=== PATIENT | female | born 1940 | race Caucasian/White ===

== ENCOUNTER 2019-12-16 09:29 | Emergency (ER) | payer OTHER, SELFPAY ==
[2019-12-16 09:42] VITALS: BP 131/63; PULSE 60; RESP 20; TEMP 36.8; O2SAT 98
--- NOTE | 2019-12-16 11:19 | ED.URI ---
HPI - URI/Sore Throat General Chief Complaint: Upper Respiratory Infection Stated Complaint: SINUS CONGESTION/HEADACHE Source: patient and RN notes reviewed Mode of arrival: ambulatory History of Present Illness HPI Narrative: The patient, a non-smoker/nondrinker, presents with congestion. Patient states she has a history of sinusitis followed by ENT [Dr. Rebollar], confirmed by CT scan [2017], showing chronic maxillary sinusitis dz. She complains of 1 month history of facial/frontal headache, congestion,, and postnasal drip. Symptoms are mild, unrelieved with previous Flonase or Astelin. No fever, triggers [pets, smokers], sore throat, earache, calf pain/edema, wheeze Related Data Home Medications Medication Instructions Recorded Confirmed amlodipine 5 mg tablet 5 mg PO DAILY 10/03/19 12/16/19 azelastine-fluticasone 137 mcg-50 See Rx Instructions .ROUTE .COMPLEX 10/03/19 12/16/19 mcg/spray nasal spray cholecalciferol (vitamin D3) 50 2,000 unit PO DAILY 10/03/19 12/16/19 mcg (2,000 unit) tablet cholestyramine (with sugar) 4 gram See Rx Instructions .ROUTE .COMPLEX 10/03/19 12/16/19 oral powder cyanocobalamin (vitamin B-12) See Rx Instructions .ROUTE .COMPLEX 10/03/19 12/16/19 1,000 mcg/mL injection solution cyclobenzaprine 5 mg tablet 5 mg PO TID PRN 10/03/19 12/16/19 fluticasone propionate 50 See Rx Instructions .ROUTE .COMPLEX 10/03/19 12/16/19 mcg/actuation nasal spray,suspension oxybutynin chloride 10 mg 10 mg PO DAILY 10/03/19 12/16/19 tablet,extended release 24 hr potassium 99 mg tablet See Rx Instructions .ROUTE .COMPLEX 10/03/19 12/16/19 syringe (disposable) 1 mL #1,000 each 10/03/19 gabapentin 300 mg PO BID 12/16/19 12/16/19 tramadol 50 mg PO Q6H PRN 12/16/19 12/16/19 Allergies Allergy/AdvReac Type Severity Reaction Status Date / Time ofloxacin Allergy Severe HALLUCINATI Verified 12/16/19 09:51 ONS Quinolones Allergy Mild Gastrointestinal Verified 12/16/19 09:51 Upset clarithromycin Allergy Unknown Gastrointestinal Verified 12/16/19 09:51 Upset Sulfa (Sulfonamide Allergy Unknown Blister Verified 12/16/19 09:51 Antibiotics) Review of Systems Review of Systems: Narrative: General/Constitutional: No weight loss,fever Eyes: N0: Redness,discharge Ears/Nose/Throat: No: Epistaxis,ear discharge Respiratory: Denies: Hemoptysis Gastrointestinal: No Vomiting, Bleeding-rectal Skin: No Lumps, eruption Neurologic: No Focal Weakness,Sz Hematologic: Denies: Petechiae/Purpura Psychiatric: No: Suicida ideationl All Other Systems: Reviewed and Negative PMFSH Social History Social History Smoking status: Never smoker Alcohol intake: never Comments At time of signature, agree with nursing past medical, surgical, social and family history. There is no relevant family history pertinent to the presenting complaint Exam Narrative: Exam Narrative: General Appearance: Well appearing, Well nourished EYE: PERRLA, Conjunctiva clear Ears: Auditory canal normal, TM normal Nose: Rhinorrhea, Mucousal erythema Mouth/Throat: MM moist, Uvula midline, Pharyngeal erythema Neck: Supple, No adenopathy Respiratory: No respiratory distress, Breath sounds equal, CTA kyphotic Cardiovascular: RRR, No JVD Musculoskeletal: Non tender, Normal strength Skin: Warm, Dry Neurological: A&O x3, CN II-XII intact Psychiatric: Normal mood, Normal affect Course Course Emergency Course: General Appearance: Well appearing, Well nourished EYE: PERRLA, Conjunctiva clear Ears: Auditory canal normal, TM normal Nose: Rhinorrhea, Mucousal erythema Mouth/Throat: MM moist, Uvula midline, Pharyngeal erythema Neck: Supple, No adenopathy Respiratory: No respiratory distress, Breath sounds equal, Clear to auscultation Cardiovascular: RRR, No JVD Musculoskeletal: Non tender, Normal strength Skin: Warm, Dry Neurological: A&O x3, CN II-XI
== END 2019-12-16 10:18 | disposition home or self-care (01) ==
PROVIDERS: Emergency Provider Emergency Medicine; PCP Emergency Medicine
DX: J01.90 Acute sinusitis, unspecified (principal); I10 Essential (primary) hypertension; K21.9 Gastro-esophageal reflux disease without esophagitis; H26.9 Unspecified cataract; H40.9 Unspecified glaucoma
CPT/HCPCS: 99213; G0463

== ENCOUNTER 2020-04-25 08:26 | Outpatient (CLI) | payer OTHER, SELFPAY ==
--- NOTE | ~2020-04-25 | MM_ITS ---
EXAMINATION: MM screening josé miguel BI w lucie HISTORY: Screening mammogram TECHNIQUE: Craniocaudal and mediolateral oblique 3-D tomosynthesis images were obtained and synthetic 2-D images were generated. CAD analysis was submitted and interpreted. COMPARISON: 11/20/2018, 09/02/2017, 08/12/2016 bilateral digital screening mammogram examinations BREAST PARENCHYMAL COMPOSITION: There are scattered areas of fibroglandular density. FINDINGS: There is no evidence of suspicious mass, calcification, or architectural distortion to sugg est malignancy in either breast. There has been no suspicious interval change. IMPRESSION: 1. No mammographic evidence of malignancy. 2. Recommend routine screening mammography in one year. BI-RADS Category 1: Negative Reviewed, dictated and finalized at location A.
[2020-04-25 09:40] LABS: Alanine Aminotransferase 17 U/L (4-35); Albumin Level 4.4 g/dL (3.5-5.1); Alkaline Phosphatase 86 U/L (38-126); Aspartate Amino Transferase 18 U/L (14-36); Bilirubin,Total 0.4 mg/dL (0.2-1.3); Blood Urea Nitrogen 19 mg/dL (7-17); Calcium 9.2 mg/dL (8.4-10.2); Carbon Dioxide 29 mmol/L (22-30); Chloride 104 mmol/L (98-107); Estimated Glomerular Filt Rate > 60; Glucose 98 mg/dL (65-105); Potassium 4.2 mmol/L (3.4-5.0); Sodium 138 mmol/L (137-145)
== END 2020-04-25 08:27 | disposition home or self-care (01) ==
PROVIDERS: PCP Emergency Medicine; Visit Provider Emergency Medicine
DX: Z12.31 Encounter for screening mammogram for malignant neoplasm of breast (principal); E78.5 Hyperlipidemia, unspecified
CPT/HCPCS: 36415; 77063; 77067; 80053

== ENCOUNTER 2020-10-11 07:45 | Outpatient (CLI) | payer OTHER, SELFPAY ==
--- NOTE | ~2020-10-11 | DEXA_ITS ---
Bone Density Report Name: Carmella James Age: 80 Sex: Female Ethnicity: White Date of : 1940 Indication: osteopenia; parental hip fracture; height loss; prior fracture; hysterectomy; Referring Provider: ANTONIA RUSHING Study: Bone densitometry was performed. Exam Date: October 11, 2020 Accession number: [id number] Bone Density: Region BMD T-score Z-score Classification AP Spine (L1-L4) 0.905 -1.3 1.3 Osteopenia Femoral Neck (Left) 0.721 -1.2 1.1 Osteopenia Total Hip (Left) 0.790 -1.2 0.8 Osteopenia Total Hip Bilateral Avg 0.788 -1.3 0.8 Osteopenia Femoral Neck (Right) 0.602 -2.2 0.0 Osteopenia Total Hip (Right) 0.785 -1.3 0.7 Osteopenia World Health Organization criteria for BMD impression classify patients as: Normal (T-score at or above -1.0), Osteopenia (T-score between -1.0 and -2.5), or Osteoporosis (T-score at or below -2.5). 10-year Fracture Risk(1): Major Osteoporotic Fracture 38% Hip Fracture 24% Reported Risk Factors: [place] (), Neck BMD=0.602, BMI=30.3, previous fracture, parental fracture (1) FRAX(R) Version 3.08. Fracture probability calculated for an untreated patient. Fracture probability may be lower if the patient has received treatment. Previous Exams: Region Exam Age BMD T-score BMD Change BMD Change Date g/cm2 vs Baseline vs Previous AP Spine(L1-L4) 10/11/2020 80 0.905 -1.3 0.001(0.1%) -0.006(-0.7%) 09/02/2017 76 0.912 -1.2 0.007(0.8%) 0.007(0.8%) 06/11/2015 74 0.904 -1.3 Total Hip(Left) 10/11/2020 80 0.790 -1.2 -0.016(-1.9%) -0.058(-6.8%)* 09/02/2017 76 0.848 -0.8 0.042(5.2%)* 0.042(5.2%)* 06/11/2015 74 0.805 -1.1 Total Hip(Right) 10/11/2020 80 0.785 -1.3 -0.008(-1.0%) -0.039(-4.8%)* 09/02/2017 76 0.825 -1.0 0.031(4.0%)* 0.031(4.0%)* 06/11/2015 74 0.793 -1.2 *Denotes significance at 95% confidence level, LSC for AP Spine = 0.022 g/cm2, LSC for Total Hip = 0.027 g/cm2 Clinical Information Provided by Patient: Has had a low trauma fracture Parent has had a hip fracture Has used the following medications: Vitamin D, Calcium Has the following medical conditions: Hysterectomy Patient maximum height was 62 Menopause Age: 51 No regular weight bearing exercise Does not regularly consume dairy products Onset of menses at age 13 Number of children 4 Impression: The patient has low bone mass, based on the Right Femoral Neck T-score
== END 2020-10-11 07:46 | disposition home or self-care (01) ==
PROVIDERS: PCP Emergency Medicine; Visit Provider Emergency Medicine
DX: Z78.0 Asymptomatic menopausal state (principal); M85.88 Other specified disorders of bone density and structure, other site; M85.852 Other specified disorders of bone density and structure, left thigh; M85.851 Other specified disorders of bone density and structure, right thigh
CPT/HCPCS: 77080

== ENCOUNTER 2020-12-13 12:33 | Outpatient (CLI) | payer OTHER, SELFPAY ==
[2020-12-13 13:19] LABS: Alanine Aminotransferase 12 U/L (4-35); Albumin Level 4.3 g/dL (3.5-5.1); Alkaline Phosphatase 79 U/L (38-126); Anion Gap 8 mmol/L (8-16); Aspartate Amino Transferase 19 U/L (14-36); Bilirubin,Total 0.6 mg/dL (0.2-1.3); Blood Urea Nitrogen 12 mg/dL (7-17); Calcium 9.1 mg/dL (8.4-10.2); Carbon Dioxide 28 mmol/L (22-30); Chloride 104 mmol/L (98-107); Estimated Glomerular Filt Rate > 60; Glucose 99 mg/dL (65-105); Potassium 4.3 mmol/L (3.4-5.0); Sodium 140 mmol/L (137-145)
[2020-12-17 05:44] LABS: Vitamin D 1,25 (OH)2 Total 45 pg/mL (18-72); Vitamin D2 1,25 (OH)2 <8 pg/mL; Vitamin D3 1,25 (OH)2 45 pg/mL
== END 2020-12-13 12:34 | disposition home or self-care (01) ==
LOC: ANHLAB 12:34
PROVIDERS: PCP Emergency Medicine; Visit Provider Emergency Medicine
DX: E55.9 Vitamin D deficiency, unspecified (principal); E78.5 Hyperlipidemia, unspecified
CPT/HCPCS: 36415; 80053; 82652

== ENCOUNTER 2021-03-26 15:52 | Outpatient (CLI) | payer OTHER, SELFPAY ==
--- NOTE | ~2021-03-26 | XR_ITS ---
EXAMINATION: XR knee RT 2V DATE: 03/26/2021 16:09 INDICATION: Medial right knee pain. TECHNIQUE: 2 views of right knee were obtained. COMPARISON: None. FINDINGS: Bone alignment is normal. No fracture. There is mild osteoarthritis of medial and patellofe moral compartments. No knee joint effusion. IMPRESSION: 1. Mild right knee osteoarthritis. Reviewed, dictated and finalized at location B.
== END 2021-03-26 15:53 | disposition home or self-care (01) ==
LOC: ANHIMG 15:54
PROVIDERS: PCP Emergency Medicine; Visit Provider Emergency Medicine
DX: M17.11 Unilateral primary osteoarthritis, right knee (principal)
CPT/HCPCS: 73560

== ENCOUNTER → 2021-05-31 06:42 | Outpatient (CLI) | payer OTHER, SELFPAY ==
[2021-05-31 18:26] LABS: SARS-CoV-2 RNA PCR Negative
== END ==
PROVIDERS: PCP Emergency Medicine; Visit Provider Emergency Medicine
DX: R05 Cough (principal); R50.9 Fever, unspecified; R68.89 Other general symptoms and signs; Z20.822 Contact with and (suspected) exposure to COVID-19
CPT/HCPCS: C9803; U0003; U0005

== ENCOUNTER 2021-07-25 10:59 | Outpatient (CLI) | payer OTHER, SELFPAY ==
[2021-07-25 11:44] LABS: Alanine Aminotransferase 16 U/L (4-35); Albumin Level 4.6 g/dL (3.5-5.1); Alkaline Phosphatase 66 U/L (38-126); Anion Gap 9 mmol/L (8-16); Aspartate Amino Transferase 22 U/L (14-36); Bilirubin,Total 0.5 mg/dL (0.2-1.3); Blood Urea Nitrogen 11 mg/dL (7-17); Calcium 9.1 mg/dL (8.4-10.2); Carbon Dioxide 26 mmol/L (22-30); Chloride 105 mmol/L (98-107); Estimated Glomerular Filt Rate > 60; Glucose 101 mg/dL (65-110); Potassium 4.2 mmol/L (3.4-5.0); Sodium 140 mmol/L (137-145)
[2021-07-29 12:19] LABS: Vitamin D 1,25 (OH)2 Total 64 pg/mL (18-72); Vitamin D2 1,25 (OH)2 <8 pg/mL; Vitamin D3 1,25 (OH)2 64 pg/mL
== END 2021-07-25 11:00 | disposition home or self-care (01) ==
PROVIDERS: PCP Emergency Medicine; Visit Provider Emergency Medicine
DX: E55.9 Vitamin D deficiency, unspecified (principal); M85.80 Other specified disorders of bone density and structure, unspecified site; Z13.6 Encounter for screening for cardiovascular disorders
CPT/HCPCS: 36415; 80053; 82652

== ENCOUNTER 2021-08-22 14:52 | Outpatient (CLI) | payer OTHER, SELFPAY ==
--- NOTE | ~2021-08-22 | MM_ITS ---
EXAMINATION: MM screening josé miguel BI w lucie HISTORY: Screening mammogram TECHNIQUE: Craniocaudal and mediolateral oblique 3-D tomosynthesis images were obtained and synthetic 2-D images were generated. CAD analysis was submitted and interpreted. COMPARISON: 04/25/2020, 11/03/2018, 09/02/2017 bilateral digital screening mammogram examinations BREAST PARENCHYMAL COMPOSITION: There are scattered areas of fibroglandular density. FINDINGS: There is no evidence of suspicious mass, calcification, or architectural distortion to sugg est malignancy in either breast. There has been no suspicious interval change. IMPRESSION: 1. No mammographic evidence of malignancy. 2. Recommend routine screening mammography in one year. BI-RADS Category 1: Negative Reviewed, dictated and finalized at location A.
== END 2021-08-22 14:53 | disposition home or self-care (01) ==
LOC: ANHIMG 14:53
PROVIDERS: PCP Emergency Medicine; Visit Provider Emergency Medicine
DX: Z12.31 Encounter for screening mammogram for malignant neoplasm of breast (principal)
CPT/HCPCS: 77063; 77067

== ENCOUNTER 2021-09-17 13:46 | Outpatient (CLI) | payer OTHER, SELFPAY ==
--- NOTE | ~2021-09-17 | XR_ITS ---
EXAMINATION: XR ribs RT 2V w CXR 2V DATE: 09/17/2021 14:14 INDICATION: Right-sided pleurodynia post fall one week prior TECHNIQUE: PA and lateral views of the chest and 3 views of the right ribs were obtained. COMPARISON: Chest radiograph dated 12/22/2007 FINDINGS: No rib fractures identified. Small calcified nodule at the lateral right lower lung zone consistent w ith old granulomatous disease. No other airspace opacities, pulmonary edema, pleural effusion or pneu mothorax. Cardiomediastinal silhouette is normal. Mild thoracic kyphosis with mild spondylosis. IMPRESSION: 1. No rib fracture or acute cardiopulmonary disease. Reviewed, dictated and finalized at location A. 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
== END 2021-09-17 13:47 | disposition home or self-care (01) ==
LOC: ANHIMG 13:51
PROVIDERS: PCP Emergency Medicine; Visit Provider Emergency Medicine
DX: R07.81 Pleurodynia (principal)
CPT/HCPCS: 71046; 71100

== ENCOUNTER 2021-10-31 10:32 | Outpatient (CLI) | payer OTHER, SELFPAY ==
[2021-10-31 11:03] LABS: Basophils Percent Auto 0.3 % (0.2-1.2); Eosinophils Absolute Auto 0.3 K/mm3 (0-0.3); Eosinophils Percent Auto 4.4 % (0-4.4); Hematocrit 39.6 % (37.0-47.0); Hemoglobin 12.7 g/dL (12.0-15.0); Immature Granulocyte Absolute 0.01 K/mm3 (0.00-0.031); Immature Granulocyte Percent A 0.2 % (0-0.5); Lymphocytes Absolute Auto 2.17 K/mm3 (0.9-3.2); Lymphocytes Percent Auto 34.4 % (18.3-44.2); Mean Corpuscular HGB Conc 32.1 g/dl (32-36); Mean Corpuscular Hemoglobin 27.3 pg (26-34); Mean Corpuscular Volume 85.2 fl (80-100); Mean Platelet Volume 10.2 fl (7.4-10.4); Monocytes Absolute Auto 0.5 K/mm3 (0.1-0.6); Monocytes Percent Auto 7.1 % (2.6-8.5); Neutrophils Absolute Auto 3.4 K/mm3 (1.3-6.7); Neutrophils Percent Auto 53.6 % (45.5-73.1); Platelet Count Result 239 k/mm3 (150-375); Red Blood Count 4.65 M/mm3 (4.2-5.4); Red Cell Distribution Width 14.5 % (11.5-14.5); White Blood Count 6.3 K/mm3 (4.5-10.0)
[2021-10-31 11:47] LABS: Thyroid Stimulating Hormone 0.823 uIU/mL (0.465-4.680)
== END 2021-10-31 10:33 | disposition home or self-care (01) ==
PROVIDERS: PCP Emergency Medicine; Visit Provider Emergency Medicine
DX: E53.9 Vitamin B deficiency, unspecified (principal); R53.83 Other fatigue; Z13.6 Encounter for screening for cardiovascular disorders
CPT/HCPCS: 36415; 82607; 82746; 84443; 85025

== ENCOUNTER 2022-01-23 09:22 | Outpatient (CLI) | payer OTHER, SELFPAY ==
[2022-01-23 10:05] LABS: Alanine Aminotransferase 12 U/L (4-35); Albumin Level 4.6 g/dL (3.5-5.1); Alkaline Phosphatase 63 U/L (38-126); Anion Gap 6 mmol/L (8-16); Aspartate Amino Transferase 19 U/L (14-36); Bilirubin,Total 0.4 mg/dL (0.2-1.3); Blood Urea Nitrogen 13 mg/dL (7-17); Calcium 9.1 mg/dL (8.4-10.2); Carbon Dioxide 28 mmol/L (22-30); Chloride 106 mmol/L (98-107); Estimated Glomerular Filt Rate > 60; Glucose 133 mg/dL (65-110); Potassium 4.4 mmol/L (3.4-5.0); Sodium 140 mmol/L (137-145)
== END 2022-01-23 09:23 | disposition home or self-care (01) ==
LOC: ANHLAB 09:25
PROVIDERS: PCP Emergency Medicine; Visit Provider Emergency Medicine
DX: Z13.6 Encounter for screening for cardiovascular disorders (principal)
CPT/HCPCS: 36415; 80053

== ENCOUNTER 2022-07-21 10:28 | Outpatient (CLI) | payer OTHER, SELFPAY ==
--- NOTE | ~2022-07-21 | XR_ITS ---
EXAM: XR knee RT 2V DATE: 07/21/2022 10:47 HISTORY: M17.10 - Unilateral primary osteoarthritis, unspecified knee . COMPARISON: 03/26/2021. FINDINGS: Decreased mineralization. No fracture or dislocation. No lytic or blastic lesion. Moderate medial joint space narrowing. Moderate tricompartmental osteophytosis. Quadriceps enthesopathy. No e rosion or periosteal change. Small-volume joint fluid. Soft tissues within normal limits. IMPRESSION: Moderate tricompartmental right knee osteoarthritis. Reviewed, dictated and finalized at location K.
--- NOTE | ~2022-07-21 | XR_ITS ---
XR knee LT 2V 07/21/2022 10:46 Indication: Primary osteoarthritis. Procedure: 2 views left knee Comparison: No prior studies for comparison. Findings: There is mild-moderate tricompartment osteoarthritis of the left knee. No significant joint effusion. No fracture or traumatic malalignment. Impression: 1: Mild-moderate osteoarthritis of the left knee. Reviewed, dictated and finalized at location A. Impression: 1: Mild-moderate osteoarthritis of the left knee.
[2022-07-21 11:24] LABS: Creatine Kinase 54 U/L (30-135)
== END 2022-07-21 10:29 | disposition home or self-care (01) ==
LOC: ANHLAB 10:28
PROVIDERS: PCP Emergency Medicine; Visit Provider Emergency Medicine
DX: M17.0 Bilateral primary osteoarthritis of knee (principal)
CPT/HCPCS: 36415; 73560; 82550

== ENCOUNTER 2022-07-31 07:00 | Outpatient (CLI) | payer OTHER, SELFPAY ==
[2022-07-31 07:41] LABS: Alanine Aminotransferase 14 U/L (6-35); Albumin Level 4.4 g/dL (3.5-5.1); Alkaline Phosphatase 56 U/L (38-126); Anion Gap 12 mmol/L (8-16); Aspartate Amino Transferase 18 U/L (14-36); Bilirubin,Total 0.4 mg/dL (0.2-1.3); Blood Urea Nitrogen 12 mg/dL (7-17); Calcium 8.7 mg/dL (8.4-10.2); Carbon Dioxide 27 mmol/L (22-30); Chloride 102 mmol/L (98-107); Estimated Glomerular Filt Rate > 60; Glucose 117 mg/dL (65-110); Sodium 141 mmol/L (137-145)
[2022-08-04 20:41] LABS: Vitamin D 1,25 (OH)2 Total 67 pg/mL (18-72); Vitamin D2 1,25 (OH)2 <8 pg/mL; Vitamin D3 1,25 (OH)2 67 pg/mL
== END 2022-07-31 07:01 | disposition home or self-care (01) ==
LOC: ANHLAB 07:03
PROVIDERS: PCP Emergency Medicine; Visit Provider Emergency Medicine
DX: E55.9 Vitamin D deficiency, unspecified (principal); Z13.6 Encounter for screening for cardiovascular disorders
CPT/HCPCS: 36415; 80053; 82652

== ENCOUNTER 2022-10-16 07:33 | Outpatient (CLI) | payer OTHER, SELFPAY ==
--- NOTE | ~2022-10-16 | DEXA_ITS ---
Bone Density Report Name: SIMON CHIANG Age: 82 Sex: Female Ethnicity: White Date of : 1940 Indication: osteopenia; height loss; postmenopausal Referring Provider: ANTONIA RUSHING Study: Bone densitometry was performed. Exam Date: October 16, 2022 Accession number: [id number] Bone Density: Region BMD T-score Z-score Classification AP Spine(L1-L4) 0.990 -0.5 2.2 Normal Femoral Neck (Left) 0.804 -0.4 1.9 Normal Total Hip (Left) 0.850 -0.8 1.4 Normal Femoral Neck (Right) 0.674 -1.6 0.8 Osteopenia Total Hip (Right) 0.840 -0.8 1.3 Normal Total Hip Mean 0.845 -0.8 1.4 Normal World Health Organization criteria for BMD impression classify patients as: Normal (T-score at or above -1.0), Osteopenia (T-score between -1.0 and -2.5), or Osteoporosis (T-score at or below -2.5). 10-year Fracture Risk(1): Major Osteoporotic Fracture 13% Hip Fracture 3.2% Reported Risk Factors: [place] (), Neck BMD=0.674, BMI=31.2 (1) FRAX(R) Version 3.08. Fracture probability calculated for an untreated patient. Fracture probability may be lower if the patient has received treatment. Previous Exams: Region Exam Age BMD T-score BMD Change BMD Change Date g/cm2 vs Baseline vs Previous AP Spine (L1-L4) 10/16/2022 82 0.990 -0.5 0.086 (9.5%)* 0.085 (9.4%)* 10/11/2020 80 0.905 -1.3 0.001 (0.1%) -0.006 (-0.7%) 09/02/2017 76 0.912 -1.2 0.007 (0.8%) 0.007 (0.8%) 06/11/2015 74 0.904 -1.3 Total Hip(Left) 10/16/2022 82 0.850 -0.8 0.045 (5.6%)* 0.060 (7.6%)* 10/11/2020 80 0.790 -1.2 -0.016 (-1.9%) -0.058 (-6.8%) 09/02/2017 76 0.848 -0.8 0.042 (5.2%)* 0.042 (5.2%)* 06/11/2015 74 0.805 -1.1 Total Hip(Right) 10/16/2022 82 0.840 -0.8 0.047 (5.9%)* 0.055 (7.0%)* 10/11/2020 80 0.785 -1.3 -0.008 (-1.0%) -0.039 (-4.8%) 09/02/2017 76 0.825 -1.0 0.031 (4.0%)* 0.031 (4.0%)* 06/11/2015 74 0.793 -1.2 *Denotes significance at 95% confidence level, LSC for AP Spine = 0.022 g/cm2, LSC for Total Hip = 0.027 g/cm2 Clinical Information Provided by Patient: Has used the following medications: Vitamin D, Calcium Patient maximum height was 62 Menopause Age: 51 No regular weight bearing exercise Drinks caffeinated beverages Onset of menses at age 13 Number of children 4 Impression: The patient has low bone mass, based on the Right Femoral Neck T-score. The patient
--- NOTE | ~2022-10-16 | MM_ITS ---
EXAMINATION: MM screening josé miguel BI w lucie HISTORY: Screening TECHNIQUE: Craniocaudal and mediolateral oblique 3-D tomosynthesis images were obtained and synthetic 2-D images were generated. CAD analysis was submitted and interpreted. COMPARISON: Comparison to multiple prior studies sequentially, with oldest reviewed study dated 06/11. BREAST PARENCHYMAL COMPOSITION: The breasts are almost entirely fatty. FINDINGS: There is no evidence of suspicious mass, calcification, or architectural distortion to sugg est malignancy in either breast. There has been no suspicious interval change. IMPRESSION: 1. No mammographic evidence of malignancy. 2. Recommend routine screening mammography in one year. BI-RADS Category 1: Negative Reviewed, dictated and finalized at location B. [facility]
== END 2022-10-16 07:34 | disposition home or self-care (01) ==
LOC: ANHIMG 07:34
PROVIDERS: PCP Emergency Medicine; Visit Provider Emergency Medicine
DX: Z12.31 Encounter for screening mammogram for malignant neoplasm of breast (principal); Z78.0 Asymptomatic menopausal state; M85.851 Other specified disorders of bone density and structure, right thigh
CPT/HCPCS: 77063; 77067; 77080

== ENCOUNTER 2022-12-02 07:00 | Outpatient (CLI) | payer OTHER, SELFPAY ==
[2022-12-02 07:35] LABS: Basophils Percent Auto 0.3 % (0.2-1.2); Eosinophils Percent Auto 0.3 % (0-4.4); Hematocrit 45.2 % (37.0-47.0); Hemoglobin 14.5 g/dL (12.0-15.0); Immature Granulocyte Absolute 0.04 K/mm3 (0.00-0.031); Immature Granulocyte Percent A 0.4 % (0-0.5); Lymphocytes Absolute Auto 2.45 K/mm3 (0.9-3.2); Lymphocytes Percent Auto 26.5 % (18.3-44.2); Mean Corpuscular HGB Conc 32.1 g/dl (32-36); Mean Corpuscular Hemoglobin 27.6 pg (26-34); Mean Corpuscular Volume 85.9 fl (80-100); Mean Platelet Volume 10.4 fl (7.4-10.4); Monocytes Absolute Auto 0.5 K/mm3 (0.1-0.6); Monocytes Percent Auto 5.9 % (2.6-8.5); Neutrophils Absolute Auto 6.1 K/mm3 (1.3-6.7); Neutrophils Percent Auto 66.6 % (45.5-73.1); Platelet Count Result 317 k/mm3 (150-375); Red Blood Count 5.26 M/mm3 (4.2-5.4); Red Cell Distribution Width 14.4 % (11.5-14.5); White Blood Count 9.2 K/mm3 (4.5-10.0)
[2022-12-02 10:45] LABS: Anion Gap 8 mmol/L (8-16); Blood Urea Nitrogen 18 mg/dL (7-17); Carbon Dioxide 27 mmol/L (22-30); Chloride 101 mmol/L (98-107); Estimated Glomerular Filt Rate > 60; Glucose 95 mg/dL (65-110); Potassium 4.1 mmol/L (3.4-5.0); Sodium 136 mmol/L (137-145)
--- NOTE | 2022-12-02 10:47 | ECG_ITS ---
Measurements Intervals [place] Rate: 56 P: -28 ID: 120 QRS: 2 QRSD: 90 T: 47 QT: 409 QTc: 397 Interpretive Statements SINUS BRADYCARDIA WITH OCCASIONAL SUPRAVENTRICULAR PREMATURE COMPLEXES LEFT VENTRICULAR HYPERTROPHY AND ST-T CHANGE [VOLTAGE CRITERIA PLUS ST/T ABNORMALITY] COMPARED TO ECG 11/02/2019 12:54:50 PACs NOW PRESENT Electronically Signed On 12-02-2022 14:58:13 SKI TECHNICIAN by Nehemias Hood M.D.
[2022-12-02 14:08] LABS: Appearance Urine Slightly Cloudy (Clear); Bilirubin Urine Negative (Negative); Blood Urine Negative (Negative); Color Urine Light Yellow (Yellow); Glucose Urine UA Negative (Negative); Ketones Urine Negative (Negative); Leukocyte Esterase Ur Trace LEU/UL (Negative); Nitrate Urine Negative (Negative); Protein Urine Negative (Negative); Specific Grav Ur 1.015 (1.001-1.035); Urobilinogen Urine 0.2 mg/dL (<2.0); pH Urine 7.5 (5.0-9.0)
[2022-12-02 14:27] LABS: Bacteria Urine Trace /hpf; RBC Urine 0-2 /hpf (0-2); Squamous Epithelial Cell Urine Rare /hpf (Few); WBC Urine 0-3 /hpf
[2022-12-02 14:34] LABS: Add Urine Microscopic? YES
== END 2022-12-02 07:01 | disposition home or self-care (01) ==
PROVIDERS: PCP Emergency Medicine; Visit Provider Orthopaedic Surgery
DX: M17.11 Unilateral primary osteoarthritis, right knee (principal); I10 Essential (primary) hypertension; R32 Unspecified urinary incontinence
CPT/HCPCS: 36415; 80048; 81001; 85025; 93005

== ENCOUNTER 2022-12-30 11:39 | Outpatient (CLI) | payer OTHER, SELFPAY ==
[2022-12-30 12:12] LABS: Alanine Aminotransferase 20 U/L (6-35); Albumin Level 4.3 g/dL (3.5-5.1); Alkaline Phosphatase 76 U/L (38-126); Anion Gap 6 mmol/L (8-16); Aspartate Amino Transferase 18 U/L (14-36); Bilirubin,Total 0.7 mg/dL (0.2-1.3); Blood Urea Nitrogen 11 mg/dL (7-17); Calcium 8.8 mg/dL (8.4-10.2); Carbon Dioxide 30 mmol/L (22-30); Chloride 104 mmol/L (98-107); Estimated Glomerular Filt Rate > 60; Glucose 105 mg/dL (65-110); Potassium 4.5 mmol/L (3.4-5.0); Sodium 140 mmol/L (137-145)
[2022-12-30 13:18] LABS: Folic Acid 13.4 ng/mL (2.76->20)
[2023-01-02 23:02] LABS: Vitamin D 1,25 (OH)2 Total 45 pg/mL (18-72); Vitamin D2 1,25 (OH)2 <8 pg/mL; Vitamin D3 1,25 (OH)2 45 pg/mL
== END 2022-12-30 11:40 | disposition home or self-care (01) ==
PROVIDERS: PCP Emergency Medicine; Visit Provider Emergency Medicine
DX: E55.9 Vitamin D deficiency, unspecified (principal); Z78.0 Asymptomatic menopausal state
CPT/HCPCS: 36415; 80053; 82607; 82652; 82746

== ENCOUNTER 2023-01-13 07:45 | Outpatient (CLI) | payer OTHER, SELFPAY ==
--- NOTE | 2023-01-13 09:01 | ECG_ITS ---
Measurements Intervals [place] Rate: 63 P: 37 NE: 143 QRS: -4 QRSD: 88 T: 45 QT: 387 QTc: 398 Interpretive Statements SINUS RHYTHM VOLTAGE CRITERIA FOR LVH MINIMAL Q WAVES- HIGH LATERAL LEADS BASELINE ARTIFACT- I, II, III, AVR, AVL, AVF BORDERLINE ECG COMPARED TO ECG 12/02/2022 08:31:41 SINUS RHYTHM NOW PRESENT Electronically Signed On 01-13-2023 9:31:46 CDT by Thang Gómez D.O.
[2023-01-13 09:39] LABS: Urine Cotinine NEGATIVE
[2023-01-13 09:40] LABS: Partial Thromboplastin Time 24.7 SECONDS (22.3-36.8); Prothrombin Time 13.2 Seconds (11.1-14.7)
[2023-01-13 09:44] LABS: Hemoglobin A1C 6.3 % (<5.7)
== END 2023-01-13 07:46 | disposition home or self-care (01) ==
LOC: ANHSURGERY 07:49
PROVIDERS: PCP Emergency Medicine; Visit Provider Orthopaedic Surgery
DX: M17.11 Unilateral primary osteoarthritis, right knee (principal); I10 Essential (primary) hypertension; Z01.818 Encounter for other preprocedural examination; R94.31 Abnormal electrocardiogram [ECG] [EKG]
CPT/HCPCS: 80307; 83036; 85610; 85730; 86850; 86900; 86901; 87081; 93005

== ENCOUNTER 2023-01-27 00:35 | Day surgery (SDC) | payer OTHER, SELFPAY ==
[2023-01-13 07:40] VITALS: BMI 21.2
--- NOTE | 2023-01-13 07:40 | PC.NURSE ---
PRE-OP INSTRUCTIONS, PLEASE READ CAREFULLY Report to the Outpatient Waiting Room, entrance under the green pavilion located off [facility], at time _0900_ on date _01/27/23_. Planned Procedure Time: _1100_. PACK A SMALL OVERNIGHT BAG AND LEAVE IN THE CAR ALONG WITH YOUR WALKER Time changes happen often and if your time is changed the preop area will call you the afternoon before. - You and your visitor will be asked to self-screen and do not enter if you have any COVID symptoms. - Only one visitor is requested with a max of two and NO children visitors are allowed at this time. - The patient visitor may be requested to leave or wait in car when not with patient due to distancing restrictions. - A mask is optional within the hospital at this time. -VISITING HOURS 8AM-8PM Patients may have clear liquids (water, carbonated beverages, clear teas, apple juice) until 3 hours prior to surgery (0800 AM) with a maximum of 20 ounces. - No food from midnight until time of surgery Take the following medications with a SIP of water the morning of surgery: _AMLODIPINE, GABAPENTIN, NASAL SPRAY,- CYCLOBENZAPRINE & TRAMADOL IF NEEDED_ DO NOT STOP ANY OF YOUR OTHER PRESCRIPTION MEDICATIONS PRIOR TO SURGERY ?EXCEPT THE FOLLOWING Medications to discontinue per ANESTHESIA - _VITAMINS & SUPPLEMENTS 3 DAYS PRIOR TO SURGERY, Date to take last dose 01/23/23_ Please no make-up, nail [place], hairspray, perfume, deodorant, or body powder the day of surgery. No jewelry (including any body piercings) or valuables the day of surgery, leave them at home. Please take a shower or bath the night before, or the morning of, surgery with an antibacterial soap. Wear comfortable, loose fitting clothing. - Jewelry must be removed prior to entering the operating room. Rings and piercings that are not removed may be cut off. - The hospital will not accept responsibility for valuables. - Please leave all valuables, including medications, at home the day of surgery. If you are going home after surgery, a licensed driver's license examiner must drive you home. - NO public transportation without another adult if you receive anesthesia. - We recommend that an adult stay with you for 24 hours following discharge. - We also recommend that you do not drive, make important decision, drink alcoholic beverages, or take any drugs that were not prescribed by your health care provider for at least 24 hours after your discharge time. Follow any additional instructions given to you from your surgeon. If you or anyone in your household have experienced Covid symptoms in the past week, please notify your surgeon or the nurse liaison at the phone number below for possible testing. Instructions given to _PATIENT_and asked if any additional questions and then verbalized understanding. Patient advised to call surgeon office or pre surgery nurse liaison [phone] if any additional questions.
[2023-01-13 08:10] VITALS: BP 150/62; PULSE 62; RESP 18; TEMP 36.9; O2SAT 99
[2023-01-27] VITALS (14 sets, daily range): BP systolic 115–151; BP diastolic 53–71; PULSE 55–87; RESP 12–20; TEMP 35.6–36.5; O2SAT 95–100; BMI 32.9
--- NOTE | ~2023-01-27 | XR_ITS ---
Right Knee Technique: Portable AP and crosstable lateral views Clinical History: Status post TKR Findings: Patient is status post total knee replacement. Orthopedic hardware alignment appears anatom ic. No hardware complication is evident. Subcutaneous emphysema and swelling is likely postoperative in nature. No acute osseous fracture is seen. Impression: Status post total knee replacement, without evidence of hardware complication. Reviewed, dictated and finalized at location . Impression: Status post total knee replacement, without evidence of hardware complication.
[2023-01-27] MEDS: ACETAMINOPHEN 500 MG TABLET 1000 MG PO (06:23)
[2023-01-27] MEDS: LACTATED RINGERS 1,000 ML 30 ML IV CONT ×2 (06:35→10:12)
--- NOTE | 2023-01-27 06:50 | WPDANESEPPF ---
Anes - Initial Pre Proc Eval Procedure: Operation Date: 01/27/23 07:30 Proposed Procedures p Right Total Knee Arthroplasty - Efe Bernard MD Date/Time: 01/27/23 06:50 Surgeon: Efe Bernard MD Pre Op Diagnosis: right knee djd Patient Data Age: 82 Gender: F Height: 1.5 m Weight: 47.7 kg Last Vital Signs Temp 36.9 C 01/13/23 08:10 Pulse 62 01/13/23 08:10 Resp 18 01/13/23 08:10 BP 150/62 H 01/13/23 08:10 Pulse Ox 99 01/13/23 08:10 O2 Del Method Room Air 01/13/23 08:10 Allergies Allergy/AdvReac Type Severity Reaction Status Date / Time ofloxacin Allergy Severe HALLUCINATI Verified 01/27/23 06:09 ONS Quinolones Allergy Mild Gastrointestinal Verified 01/27/23 06:09 Upset clarithromycin Allergy Unknown Gastrointestinal Verified 01/27/23 06:09 Upset Sulfa (Sulfonamide Allergy Unknown Blister Verified 01/27/23 06:09 Antibiotics) Home Medications Medication Instructions Recorded Confirmed Type cholecalciferol (vitamin D3) 50 2,000 unit PO DAILY 10/03/19 01/27/23 History mcg (2,000 unit) tablet potassium 99 mg tablet See Rx Instructions .Route .COMPLEX 10/03/19 01/27/23 History fluticasone propionate 50 See Rx Instructions .Route 04/06/22 01/27/23 Rx mcg/actuation nasal .COMPLEX #15.8 mL spray,suspension (Flonase Allergy Relief) cyanocobalamin (vitamin B-12) See Rx Instructions .Route 04/14/22 01/27/23 Rx 1,000 mcg/mL injection solution .COMPLEX #3 mL syringe (disposable) 1 mL (BD #3 ea 04/14/22 01/13/23 Rx Luer-Alireza Syringe) cyclobenzaprine 5 mg tablet 5 mg PO TID PRN Back Pain #21 tabs 04/20/22 01/27/23 Rx tramadol 50 mg tablet 50 mg PO Q6H PRN Pain #60 tabs 04/23/22 01/27/23 Rx pantoprazole 40 mg tablet,delayed See Rx Instructions .Route 10/16/22 01/27/23 Rx release .COMPLEX #90 tabs amlodipine 5 mg tablet See Rx Instructions .Route 12/07/22 01/27/23 Rx .COMPLEX #90 tabs gabapentin 300 mg capsule See Rx Instructions .Route 12/07/22 01/27/23 Rx .COMPLEX #180 caps cholestyramine (with sugar) 4 gram See Rx Instructions .Route 12/08/22 01/27/23 Rx oral powder .COMPLEX #378 grams azelastine 137 mcg (0.1 %) nasal See Rx Instructions .Route 01/08/23 01/27/23 Rx spray aerosol .COMPLEX #30 mL calcium 500 mg tablet 1,000 mg DAILY 01/13/23 01/27/23 History loperamide 2 mg capsule 2 mg PO Q4H PRN Diarrhea 01/13/23 01/27/23 History loratadine 10 mg tablet (Claritin) 10 mg PO DAILY 01/13/23 01/27/23 History magnesium 500 mg tablet 500 mg PO DAILY 01/13/23 01/27/23 History oxybutynin chloride 10 mg 10 mg PO EVERY OTHER DAY 01/13/23 01/27/23 History tablet,extended release 24 hr zinc 50 mg tablet 50 mg PO DAILY 01/13/23 01/27/23 History chlorhexidine gluconate 4 % 1 applic topical ONCE #237 mL 01/14/23 Rx topical liquid (Hibiclens) Patient hx anesthesia problems: none Family hx anesthesia problems: none Results Review: All pre-operative results and documents have been reviewed as part of the pre-operative evaluation. [facility] Past Medical History Medical History Arthritis Dizziness Fibromyalgia GERD (gastroesophageal reflux disease) Hypertension Osteoarthritis of right knee Vitamin D deficiency disease Family History Family History Sibling Family history of lung cancer Mother Family history of emphysema, Onset Age: 73 Father Family history of seizure disorder, Onset Age: 69 Other Arthritis Asthma Carcinoma of colon Cerebrovascular accident Diabetes mellitus Family history of cardiovascular disease Family history of chronic obstructive pulmonary disease Family history of malignant neoplasm Heart disease Hypertension Social History Social History Smoking status: Never smoker Second hand tobacco smoke exposure: No A
[2023-01-27] MEDS: TRANEXAMIC ACID 1,000MG/ISO100 1,000 MG/100 ML BAG 200 MG IVPB (07:06)
--- NOTE | 2023-01-27 07:11 | WPDHPUPDATE1 ---
History and Physical Update Update Date/Time: 01/27/23 07:11 History and Physical has been reviewed, including an updated exam of the patient. There are NO changes in the patient's condition. Risks, benefits, and alternatives have been discussed and questions answered. Patient agrees to proceed with procedure.
--- NOTE | 2023-01-27 07:30 | WPDANESPNB ---
Anes - Peripheral Nerve Block Date/Time: 01/27/23 07:30 I have discussed with the patient/family/POA the placement of a peripheral nerve block for post-operative pain management, including associated risks, benefits, complications, and side effects. Alternative methods of post-operative analgesia were detailed. Questions were solicited and answers provided to the satisfaction of the patient/family/POA. Time-Out: A pre-procedural Time-Out was completed immediately before starting the procedure and confirmed: Patient Identification, Site, Procedure, Patient Position and the Availability of Requisite Equipment. Clinical Indications: Acute post-operative pain management requested by the operative surgeon. Nerve Block Insertion Note Anes-nerve block: femoral right Patient position: supine Skin prep: chlorhexidine Needle: 22 gauge, stimulating, insulated echogenic needle. Needle length: 50 mm Technique: nerve stimulation lost at (mA) (0.3) Injectate: bupivacaine 0.5% with epi 5 mcg/ml (30cc no epi) Observations: tolerated well Complications: none Procedure start time:: 721 Procedure end time:: 726
[2023-01-27] MEDS: ceFAZolin 2 GM/D5W 50 ML 2 GM/50 ML BAG IVPB ×3 (07:35→22:27)
[2023-01-27] MEDS: GENTAMICIN BONE CEMENT REFOBACIN 1 EACH TOPICAL (08:42)
[2023-01-27] MEDS: TRANEXAMIC ACID 1,000 MG/10 ML AMPUL 1 MG IV PUSH (09:23)
--- NOTE | 2023-01-27 10:03 | W.PM.PROC2 ---
Procedure Note - Detailed Date of Procedure 01/27/23 Pre-op Diagnosis right knee djd Post-op Diagnosis Same Procedure Performed R TKA Surgeon Efe Bernard MD Anesthesia General Description of Procedure THE RIGHT KNEE WAS PREPPED AND DRAPED IN THE STERILE FASHION. THERE WAS A 10 DEGREE FLEXION CONTRACTURE. A MIDLINE SKIN INCISION WAS MADE. A MEDIAL PARAPATELLAR ARTHROTOMY WAS MADE. THE PATELLA WAS EVERTED. THERE WAS TRICOMPARTMENT DJD. THERE WAS MINIMAL PATELLA DJD. AN INTRAMEDULLARY MAGALY WAS PLACED IN THE FEMUR. A DISTAL FEMORAL CUT WAS MADE IN 5 DEGREES OF VALGUS REMOVING APPROXIMATELY 9 MM OF BONE FROM THE DISTAL FEMUR. THE FEMUR WAS SIZED TO 62.5. A 62.5 FEMORAL CUTTING BLOCK WAS PLACED IN 3 DEGREES OF EXTERNAL ROTATION AND IN ALIGNMENT WITH LYN'S LINE AND THE TRANSEPICONDYLAR AXIS. ANTERIOR POSTERIOR AND CHAMFER CUTS WERE MADE. THE CUTS WERE EXCELLENT. NEXT AN INTRAMEDULLARY CUTTING GUIDE WAS PLACED IN THE TIBIA. A TRANS TIBIAL CUT WAS MADE ALONG THE LONG AXIS OF THE TIBIA. APPROXIMATELY 10 MM OF BONE WAS REMOVED FROM THE HIGH SIDE OF THE TIBIA. THE TIBIA WAS THEN PLANED TO A SMOOTH SURFACE. POSTERIOR FEMORAL OSTEOPHYTES WERE REMOVED FROM THE FEMORAL CONDYLES. A 67 TIBIAL TRIAL WAS PLACED IN ALIGNMENT WITH THE 1/3 MEDIAL ASPECT OF THE TIBIAL TUBERCLE. THEN A 62.5 FEMORAL TRIAL COMPONENT WAS PLACED. BOTH HAD EXCELLENT FITS. EVENTUALLY A 12 POLYETHYLENE TRIAL COMPONENT WAS PLACED. THE KNEE WAS TAKEN THROUGH A RANGE OF MOTION. THE KNEE CAME OUT TO FULL EXTENSION. THERE WAS NO ABNORMAL TILT TO THE PATELLA. THERE WAS GOOD A/P AND VARUS/VALGUS STABILITY. THERE WAS NO EXCESSIVE ROLL BACK WITH FLEXION. THE TRIAL COMPONENTS WERE REMOVED. THEN A 62.5 FEMORAL COMPONENT AND 67 TIBIAL COMPONENT WITH A 12 POLYETHYLENE COMPONENT WERE CEMENTED INTO PLACE. ONCE THE CEMENT WAS HARD THE KNEE WAS TAKEN THROUGH A ROM AGAIN AND FOUND TO BE STABLE WITH NO PATELLA TILT NO EXCESSIVE ROLL BACK WITH FLEXION AND GOOD STABILITY WITH COMPLETE AND FULL EXTENSION. THE KNEE WAS IRRIGATED WITH STERILE BETADINE AND WATER FOR ABOUT 3 MINUTES. THE BLEEDERS WERE CAUTERIZED. THE ARTHROTOMY WAS REPAIRED WITH NUMBER 1 VICRYL. THE SUB CUTANEOUS LAYER WITH 2-0 VICRYL AND THE SKIN WITH MELITA. THE WOUND WAS WASHED AND A STERILE DRESSING WAS APPLIED. PATIENT WAS EXTUBATED. Estimated Blood Loss -150.0 Pathology None sent Complications No immediate complications Condition Stable Disposition PACU
[2023-01-27] MEDS: SODIUM CHLORIDE 0.9% IV 1,000 ML 125 ML IV CONT (11:40)
[2023-01-27] MEDS: ONDANSETRON INJ 4 MG/2 ML VIAL IV PUSH ×2 (11:40→17:34)
[2023-01-27] MEDS: polyethylene glycoL 3350 17 GM POWD.PACK PO (12:16)
[2023-01-27] MEDS: PANTOPRAZOLE 40 MG TABLET BY MOUTH (12:16)
[2023-01-27] MEDS: AZELASTINE HCL NASAL 0.1% 137 MCG/SPR 30 ML BTL 2 SPRAY NASAL (12:16)
[2023-01-27] MEDS: oxyBUTYnin CHLORIDE XL 5 MG TAB.ER.24 10 MG PO (12:16)
[2023-01-27] MEDS: amLODIPine BESYLATE 5 MG TABLET BY MOUTH (12:16)
[2023-01-27] MEDS: GABAPENTIN 300 MG CAPSULE BY MOUTH ×2 (12:16→20:56)
[2023-01-27] MEDS: oxyCODONE/ACETAMINOPHEN (*CRX) 5-325 MG TABLET 1 TABLET PO (13:15)
[2023-01-27] MEDS: CELECOXIB 200 MG CAPSULE PO (15:56)
[2023-01-27] MEDS: ASPIRIN 325 MG ENTERIC TABLET PO (20:56)
[2023-01-28 05:44] VITALS: BP 112/55; PULSE 73; RESP 16; TEMP 36.8; O2SAT 94
[2023-01-28 06:29] LABS: Basophils Percent Auto 0.1 % (0.2-1.2); Eosinophils Percent Auto 0.1 % (0-4.4); Hematocrit 39.1 % (37.0-47.0); Hemoglobin 12.3 g/dL (12.0-15.0); Immature Granulocyte Absolute 0.05 K/mm3 (0.00-0.031); Immature Granulocyte Percent A 0.3 % (0-0.5); Lymphocytes Percent Auto 13.4 % (18.3-44.2); Mean Corpuscular HGB Conc 31.5 g/dl (32-36); Mean Corpuscular Hemoglobin 28.1 pg (26-34); Mean Corpuscular Volume 89.5 fl (80-100); Mean Platelet Volume 10.8 fl (7.4-10.4); Monocytes Absolute Auto 1.2 K/mm3 (0.1-0.6); Monocytes Percent Auto 7.9 % (2.6-8.5); Neutrophils Absolute Auto 11.6 K/mm3 (1.3-6.7); Neutrophils Percent Auto 78.2 % (45.5-73.1); Platelet Count Result 274 k/mm3 (150-375); Red Blood Count 4.37 M/mm3 (4.2-5.4); Red Cell Distribution Width 14.6 % (11.5-14.5); White Blood Count 14.9 K/mm3 (4.5-10.0)
[2023-01-28] MEDS: ceFAZolin 2 GM/D5W 50 ML 2 GM/50 ML BAG IVPB (06:29)
[2023-01-28] MEDS: ACETAMINOPHEN 500 MG TABLET 1000 MG PO (06:32)
[2023-01-28 06:35] LABS: Anion Gap 8 mmol/L (8-16); Blood Urea Nitrogen 8 mg/dL (7-17); Calcium 8.4 mg/dL (8.4-10.2); Carbon Dioxide 26 mmol/L (22-30); Chloride 104 mmol/L (98-107); Estimated Glomerular Filt Rate > 60; Glucose 111 mg/dL (65-110); Potassium 3.8 mmol/L (3.4-5.0); Sodium 138 mmol/L (137-145)
[2023-01-28] MEDS: ZINC SULFATE 220 MG CAPSULE PO (08:37)
[2023-01-28] MEDS: PANTOPRAZOLE 40 MG TABLET BY MOUTH (08:37)
[2023-01-28] MEDS: AZELASTINE HCL NASAL 0.1% 137 MCG/SPR 30 ML BTL 2 SPRAY NASAL (08:37)
[2023-01-28] MEDS: LORATADINE 10 MG TABLET PO (08:38)
[2023-01-28] MEDS: CHOLECALCIFEROL 1,000 UNITS TABLET 2000 UNITS PO (08:38)
[2023-01-28] MEDS: GABAPENTIN 300 MG CAPSULE BY MOUTH (08:38)
[2023-01-28] MEDS: CELECOXIB 200 MG CAPSULE PO (08:38)
[2023-01-28] MEDS: CALCIUM CARBONATE (OSCAL) 500 MG TABLET 1000 MG BY MOUTH (08:38)
[2023-01-28] MEDS: amLODIPine BESYLATE 5 MG TABLET BY MOUTH (08:38)
[2023-01-28] MEDS: ASPIRIN 325 MG ENTERIC TABLET PO (08:38)
[2023-01-28] MEDS: oxyCODONE/ACETAMINOPHEN (*CRX) 5-325 MG TABLET 1 TABLET PO (08:38)
[2023-01-28 08:56] VITALS: BP 128/48; PULSE 61; RESP 16; TEMP 36.5; O2SAT 99
--- NOTE | 2023-01-28 09:47 | WPDANESPN ---
Anes - Prog Note Post-Op Date/Time: 01/28/23 09:47 Cardiovascular status: normal Respiratory status: normal Airway patency: baseline Mental status: baseline Post-Op hydration status: normal Vital Signs: Last Vital Signs Temp 36.5 C 01/28/23 08:56 Pulse 61 01/28/23 08:56 Resp 16 01/28/23 08:56 BP 128/48 L 01/28/23 08:56 Pulse Ox 99 01/28/23 08:56 O2 Del Method Room Air 01/27/23 14:57 O2 Flow Rate 2 01/27/23 11:08 Pain Score (VAS): 01/08 I/O: Intake & Output 01/27/23 01/28/23 01/28/23 23:59 07:59 15:59 Intake Total 1640 50 Output Total 700 Balance 1640 -650 Laboratory Tests 01/28/23 05:31 01/28/23 05:31 01/28/23 01/28/23 05:31 05:31 WBC 14.9 H RBC 4.37 Hgb 12.3 Hct 39.1 MCV 89.5 MCH 28.1 MCHC 31.5 L RDW 14.6 H Plt Count 274 MPV 10.8 H Immature Gran % (Auto) 0.3 Neut % (Auto) 78.2 H Lymph % (Auto) 13.4 L Sanders % (Auto) 7.9 Eos % (Auto) 0.1 Baso % (Auto) 0.1 L Lymph # (Auto) 2.00 Sanders # (Auto) 1.2 H Eos # (Auto) 0.0 Baso # (Auto) 0.0 Abs Immat Gran (auto) 0.05 H Absolute Neuts (auto) 11.6 H Absolute Nucleated RBC 0.0 Nucleated RBC % 0.0 Sodium 138 Potassium 3.8 Chloride 104 Carbon Dioxide 26 Anion Gap 8 BUN 8 Creatinine 0.60 L Estim Creat Clear Calc Not Reportable Estimated GFR > 60 Glucose 111 H Calcium 8.4 Post-procedural complaints: none Patient Feedback: Patient satisfied with anesthetic care.
[2023-01-28 11:50] VITALS: BP 103/46; PULSE 66; RESP 16; TEMP 36.3; O2SAT 94
[2023-01-28] MEDS: MAGNESIUM OXIDE 400 MG TABLET PO (13:01)
--- NOTE | 2023-01-28 13:21 | PM.PNORT ---
Progress Note: A&P Assessment and Plan (1) Status post total right knee replacement: Code(s): Z96.651 - Presence of right artificial knee joint Status: Acute Assessment and Plan: POD #1 : Right TKA Continue PT/OT. WBAT. Walker. HIGH FALL RISK. Continue pain control. Ice Knee. Protect skin. DVT prophylaxis with Aspirin. SCDs. Incentive Spirometry Use reviewed. Monitor Dressing. Change prior to discharge. Bowel Regimen. Dispo: Home with Home Health pending progress with PT/OT Subjective Subjective Date/Time Seen: 01/28/23 13:21 Post Op day: 1 Interval history: POD #1: Right TKA Patient doing very well. Pain well controlled. Working well with PT/OT. Hopeful for discharge home today. Review of Systems Review of Systems: All systems reviewed & are unremarkable except as noted in HPI and below Constitutional: Constitutional: Denies fever(s) and Denies headache(s) ENT: Denies headache(s) Cardiovascular: Cardiovascular: Denies chest pain, Denies diaphoresis, Denies palpitations and Denies dyspnea Respiratory: Respiratory: Denies dyspnea Gastrointestinal: Gastrointestinal: Denies abdominal pain, Denies constipation, Denies nausea and Denies vomiting Genitourinary: Genitourinary: Reports nocturia and Denies dysuria Musculoskeletal: Musculoskeletal: Reports arthralgias (Right Knee ) and Reports joint swelling (Right Knee ) Neurologic: Denies headache(s) Endocrine: Endocrine: Denies palpitations Exam Const: General: comfortable and no acute distress Resp: Effort & Inspection: normal respiratory effort Cardio: Rate: regular rate Rhythm: regular rhythm GI: GI Palp: Yes Soft to palpation, No Tenderness to palpation present (GI) and No Guarding due to palpation present (GI) Skin: General skin exam: wounds noted Wounds: wounds noted Other: Incision c/d/i. No surrounding redness/warmth. No hematoma. Mild ecchymosis. No wound dehiscence Neuro: Cognition (Neuro): normal cognition Other: NV intact aside from block. Moves toes. Sensation intact to light touch. +ankle dorsiflexion/plantarflexion. Extrem: Right lower extremity: normal to inspection, knee Details: tenderness (diffuse, mild ) Location: of the patella, swelling (diffuse, consistent with surgical intervention ), abnormal ROM Details: pain with active ROM during, pain with passive ROM during and with range as follows (limited due to recent surgical intervention ); able to extend lower leg actively and ecchymosis (mild ), lower leg (Negative Emmy's Sign ) Details: normal to inspection; no erythema and no tenderness, ankle (+ankle dorsiflexion/plantarflexion ) Details: normal to inspection, no edema and normal ROM; no tenderness, no swelling and no ecchymosis and foot Details: normal capillary refill, normal to inspection, vascular exam Details: dorsalis pedis pulse present and motor-sensory exam Details: light-touch normal; no tenderness Left lower extremity: normal to inspection Psych: Mental Status: mental status grossly normal Objective Data Vital Signs Vital Signs: Vital Signs - 24 hr 01/27/23 14:45 01/27/23 14:57 01/27/23 16:00 Temperature 36.3 C L Pulse Rate 62 Respiratory Rate 16 Blood Pressure 123/58 L Pulse Oximetry 95 96 Oxygen Delivery Room Air Room Air 01/27/23 20:56 01/28/23 05:44 01/28/23 08:56 Temperature 36.3 C L 36.8 C 36.5 C Pulse Rate 87 73 61 Respiratory Rate 18 16 16 Blood Pressure 151/61 H 112/55 L 128/48 L Pulse Oximetry 97 94 99 Oxygen Delivery 01/28/23 11:50 Temperature 36.3 C L Pulse Rate 66 Respiratory Rate 16 Blood Pressure 103/46 L Pulse Oximetry 94 Oxygen Delivery Intake/Output Intake/Output: Intake & Output 01/25/23 01/26/23 01/27/23 01/28/23 23:59 23:59 23:59 23:59 Intake Total 2570 530 Output Total 1300 Balance 2570 -770 Meds/Results Medications: Active Medications Generic Name Dose Route Start Last Admin Trade Name Belloq P
--- NOTE | 2023-01-28 14:36 | PM.DS ---
DS: Admitting Diagnosis Discharge Date 01/28/23 Admitting Diagnosis Right TKA DS: Discharge Diagnosis Discharge Diagnosis (1) Status post total right knee replacement: Code(s): Z96.651 - Presence of right artificial knee joint Status: Acute Assessment and Plan: POD #1 : Right TKA Continue PT/OT. WBAT. Walker. HIGH FALL RISK. Continue pain control. Ice Knee. Protect skin. DVT prophylaxis with Aspirin. SCDs. Incentive Spirometry Use reviewed. Monitor Dressing. Change prior to discharge. Bowel Regimen. Dispo: Home with Home Health pending progress with PT/OT DS: Summary Hospital Course Reason for hospitalization: Right TKA Hospital Course: 82 year old female admitted s/p Right TKA for postoperative medical management, pain control and mobilization with PT/OT. Patient progressed well with PT/OT. Pain and vitals remained stable throughout. The patient has been cleared to be discharged home with home health at this time. All discharge care instructions reviewed at depth. New medications reviewed. Follow up planned for 3 weeks in the outpatient orthopedic clinic with Dr. Bernard. Status at Discharge Functional status at discharge: uses cane/walker Overall status at discharge: patient is progressing back to baseline Time Spent with Patient Time attestation: Total time spent providing and/or coordinating discharge services: Exam Const: General: comfortable and no acute distress Resp: Effort & Inspection: normal respiratory effort Cardio: Rate: regular rate Rhythm: regular rhythm Skin: General skin exam: wounds noted Wounds: wounds noted Other: Incision c/d/i. No surrounding redness/warmth. No hematoma. Mild ecchymosis. No wound dehiscence Neuro: Cognition (Neuro): normal cognition Other: NV intact aside from block. Moves toes. Sensation intact to light touch. +ankle dorsiflexion/plantarflexion. Extrem: Right lower extremity: normal to inspection, knee Details: tenderness (diffuse, mild ) Location: of the patella, swelling (diffuse, consistent with surgical intervention ), abnormal ROM Details: pain with active ROM during, pain with passive ROM during and with range as follows (limited due to recent surgical intervention ); able to extend lower leg actively and ecchymosis (mild ), lower leg (Negative Emmy's Sign ) Details: normal to inspection; no erythema and no tenderness, ankle (+ankle dorsiflexion/plantarflexion ) Details: normal to inspection, no edema and normal ROM; no tenderness, no swelling and no ecchymosis and foot Details: normal capillary refill, normal to inspection, vascular exam Details: dorsalis pedis pulse present and motor-sensory exam Details: light-touch normal; no tenderness Left lower extremity: normal to inspection Psych: Mental Status: mental status grossly normal DS: Data Data Completed and Pending Labs on day of discharge: Labs from last 24 hours 01/28/23 01/28/23 05:31 05:31 WBC 14.9 H RBC 4.37 Hgb 12.3 Hct 39.1 MCV 89.5 MCH 28.1 MCHC 31.5 L RDW 14.6 H Plt Count 274 MPV 10.8 H Immature Gran % (Auto) 0.3 Neut % (Auto) 78.2 H Lymph % (Auto) 13.4 L Flagler % (Auto) 7.9 Eos % (Auto) 0.1 Baso % (Auto) 0.1 L Lymph # (Auto) 2.00 Flagler # (Auto) 1.2 H Eos # (Auto) 0.0 Baso # (Auto) 0.0 Abs Immat Gran (auto) 0.05 H Absolute Neuts (auto) 11.6 H Absolute Nucleated RBC 0.0 Nucleated RBC % 0.0 Sodium 138 Potassium 3.8 Chloride 104 Carbon Dioxide 26 Anion Gap 8 BUN 8 Creatinine 0.60 L Estim Creat Clear Calc Not Reportable Estimated GFR > 60 Glucose 111 H Calcium 8.4 Discharge Plan Discharge Patient Disposition: Home Health Service Discharge Instructions: Post Op Total Knee Replacement Instructions Dr. Efe Bernard [phone] Your dressing will be changed prior to your discharge. You will be sent home with one additional dressing to be changed on post op day 7 by the home
== END 2023-01-28 15:00 | disposition home health service (06) ==
LOC: ANHSURGERY 05:52 → ANH3MEDSUR 11:13
PROVIDERS: PCP Emergency Medicine; Visit Provider Orthopaedic Surgery
PROC: (CPT 27447; principal; 2023-01-27 07:30)
DX: M17.11 Unilateral primary osteoarthritis, right knee (principal); G89.18 Other acute postprocedural pain; I10 Essential (primary) hypertension; E55.9 Vitamin D deficiency, unspecified; M79.7 Fibromyalgia; K21.9 Gastro-esophageal reflux disease without esophagitis
CPT/HCPCS: 27447; 64447; 36415; 73560; 80048; 80307; 83036; 85025; 85610; 85730; 86850; 86900; 86901; 87081; 93005; 97110; 97116; 97161; 97165; 97530; 97535; A9270; C1713; C1776; J0171; J0690; J1100; J1170; J1885; J2270; J2405; J2704; J2795; J3010; J7030; J7120

== ENCOUNTER 2023-04-01 09:00 | Outpatient (RCR) | payer OTHER, SELFPAY ==
--- NOTE | 2023-03-04 09:48 | PTOPEVAL1 ---
Assessment and note entered by Pa Neil, PT Evaluation Information Assessment Status Evaluation Diagnosis R TKA Onset 01/27/23 Subjective Information Patient had a R TKA on 01/27/23 and after doing home health is here now for continued physical therapy. She is using a cane, and is hopeful to return to work at [employer]. The patient reports biggest issue in not pain, but stiffness. Assessment PT Clinical Summary Carmella is an 82 year old female coming into the clinic after a R TKA on 01/27/23. The patient shows good strength, but has limited range of motion. Also needs to progress safely away from the cane. Physical therapy will work on improving range of motion and functional mobility to allow to return to work if okay with surgeon. Plan of Care Interventions Electrical Stimulation,Gait Training,Hot Pack/Cold Pack,Manual Therapy,Neuro Re-education,Patient/ Caregiver Education,Therapeutic Activities, Therapeutic Exercise,Ultrasound Other Interventions taping, cupping, IASTM PT Services Indicated Yes Treatment Frequency and 2x/wk for 4 weeks Duration These treatments will address the objective and functional deficits as defined above. The patient will be advanced safely and appropriately in order for the patient to progress towards his/her prior level of function. Additional exercises will be introduced and as well as a comprehensive home exercise program upon discharge, if needed, ?to ensure carryover of functional gains achieved in the clinic. This treatment plan has been reviewed and agreement upon by the patient.
--- NOTE | 2023-04-01 10:11 | PTOPDC ---
Assessment and note entered by Pa Neil, PT Evaluation Information Assessment Status Discharge Diagnosis R TKA Onset 01/27/23 Subjective Information Patient reports she is doing well. No longer using an AD, no issues at home or with HEP. Planning on returning to work in 2 weeks starting with 4 hour days with day off between work days and then progressing to 6 hour days with patient stating she was not doing full days prior to the surgery and is not planning on doing them now. Reported Pain Level Pain Score 0: Self Report Assessment PT Clinical Summary Carmella is an 82 year old female coming into the clinic with a R TKA (DOS 01/27/23). She was evaluated on March 03, 2023 and attended 9 visits. She has met all goals besides returning to work. active R knee range of motion 0-2-115 degrees. Discharged from skilled physical therapy at this time with HEP Plan of Care PT Services Indicated No
== END 2023-04-02 08:23 | disposition home or self-care (01) ==
LOC: ANHPT 09:00
PROVIDERS: PCP Emergency Medicine; Visit Provider Orthopaedic Surgery
DX: Z47.1 Aftercare following joint replacement surgery (principal); Z96.651 Presence of right artificial knee joint
CPT/HCPCS: 97110; 97140; 97161; 97530

== ENCOUNTER 2023-04-29 09:11 | Outpatient (CLI) | payer OTHER, SELFPAY ==
[2023-04-29 10:12] LABS: Alanine Aminotransferase 16 U/L (6-35); Albumin Level 4.4 g/dL (3.5-5.1); Alkaline Phosphatase 86 U/L (38-126); Anion Gap 5 mmol/L (8-16); Aspartate Amino Transferase 17 U/L (14-36); Bilirubin,Total 0.4 mg/dL (0.2-1.3); Blood Urea Nitrogen 10 mg/dL (7-17); Carbon Dioxide 30 mmol/L (22-30); Chloride 104 mmol/L (98-107); Estimated Glomerular Filt Rate > 60; Glucose 110 mg/dL (65-110); Potassium 4.5 mmol/L (3.4-5.0); Sodium 139 mmol/L (137-145)
[2023-04-29 11:15] LABS: Folic Acid 8.9 ng/mL (2.76->20)
[2023-05-03 23:27] LABS: Vitamin D 1,25 (OH)2 Total 48 pg/mL (18-72); Vitamin D2 1,25 (OH)2 <8 pg/mL; Vitamin D3 1,25 (OH)2 48 pg/mL
== END 2023-04-29 09:12 | disposition home or self-care (01) ==
PROVIDERS: PCP Emergency Medicine; Visit Provider Emergency Medicine
DX: E55.9 Vitamin D deficiency, unspecified (principal); I10 Essential (primary) hypertension
CPT/HCPCS: 36415; 80053; 82607; 82652; 82746

== ENCOUNTER 2023-08-27 09:24 | Outpatient (CLI) | payer OTHER, SELFPAY ==
[2023-08-27 10:02] LABS: Alanine Aminotransferase 13 U/L (6-35); Albumin Level 4.2 g/dL (3.5-5.1); Alkaline Phosphatase 66 U/L (38-126); Anion Gap 6 mmol/L (8-16); Aspartate Amino Transferase 20 U/L (14-36); Bilirubin,Total 0.6 mg/dL (0.2-1.3); Blood Urea Nitrogen 12 mg/dL (7-17); Calcium 8.7 mg/dL (8.4-10.2); Carbon Dioxide 26 mmol/L (22-30); Chloride 105 mmol/L (98-107); Estimated Glomerular Filt Rate > 60; Glucose 98 mg/dL (65-110); Potassium 4.3 mmol/L (3.4-5.0); Sodium 137 mmol/L (137-145)
[2023-08-27 10:35] LABS: Vitamin D 25 Hydroxy 37.9 ng/mL
== END 2023-08-27 09:25 | disposition home or self-care (01) ==
PROVIDERS: PCP Emergency Medicine; Visit Provider Emergency Medicine
DX: E78.5 Hyperlipidemia, unspecified (principal); E55.9 Vitamin D deficiency, unspecified
CPT/HCPCS: 36415; 80053; 82306

== ENCOUNTER 2024-02-10 13:24 | Outpatient (CLI) | payer OTHER, SELFPAY ==
[2024-02-10 14:33] LABS: Alanine Aminotransferase 13 U/L (6-35); Albumin Level 4.3 g/dL (3.5-5.1); Alkaline Phosphatase 78 U/L (38-126); Anion Gap 6 mmol/L (4-12); Aspartate Amino Transferase 21 U/L (14-36); Bilirubin,Total 0.6 mg/dL (0.2-1.3); Blood Urea Nitrogen 12 mg/dL (7-17); Calcium 8.8 mg/dL (8.4-10.2); Carbon Dioxide 23 mmol/L (22-30); Chloride 107 mmol/L (98-107); Estimated Glomerular Filt Rate > 60; Glucose 90 mg/dL (65-110); Potassium 4.2 mmol/L (3.4-5.0); Sodium 136 mmol/L (137-145)
[2024-02-10 17:55] LABS: Vitamin D 25 Hydroxy 22.3 ng/mL
== END 2024-02-10 13:25 | disposition home or self-care (01) ==
LOC: ANHLAB 13:26
PROVIDERS: PCP Emergency Medicine; Visit Provider Emergency Medicine
DX: I10 Essential (primary) hypertension (principal); E55.9 Vitamin D deficiency, unspecified
CPT/HCPCS: 36415; 80053; 82306

== ENCOUNTER 2024-03-10 14:44 | Outpatient (CLI) | payer OTHER, SELFPAY ==
--- NOTE | ~2024-03-10 | MM_ITS ---
EXAMINATION: MM screening josé miguel BI w lucie HISTORY: Screening mammogram TECHNIQUE: Craniocaudal and mediolateral oblique 3-D tomosynthesis images were obtained and synthetic 2-D images were generated. CAD analysis was submitted and interpreted. COMPARISON: 10/16/2022, 08/22/2021 bilateral screening mammogram examinations BREAST PARENCHYMAL COMPOSITION: There are scattered areas of fibroglandular density. FINDINGS: There is a 3.5 mm circumscribed circular opacity in the anterior upper mid right breast. O therwise there is no evidence of suspicious mass, calcification, or architectural distortion to sugge st malignancy in either breast. There has been no other suspicious interval change. IMPRESSION: 1. 3.5 mm circumscribed mass in upper anterior central left breast 2. Diagnostic left mammogram and targeted left breast ultrasound are recommended. BI-RADS Category 0: Incomplete: Needs additional imaging evaluation. Reviewed, dictated and finalized at location B. IMPRESSION: 1. 3.5 mm circumscribed mass in upper anterior central left breast 2. Diagnostic left mammogram and targeted left breast ultrasound are recommende d. BI-RADS Category 0: Incomplete: Needs additional imaging evaluation.
== END 2024-03-10 14:45 | disposition home or self-care (01) ==
LOC: ANHIMG 14:46
PROVIDERS: PCP Emergency Medicine; Visit Provider Emergency Medicine
DX: Z12.31 Encounter for screening mammogram for malignant neoplasm of breast (principal); R92.8 Other abnormal and inconclusive findings on diagnostic imaging of breast
CPT/HCPCS: 77063; 77067

== ENCOUNTER 2024-04-04 11:07 | Outpatient (CLI) | payer OTHER, SELFPAY ==
--- NOTE | ~2024-04-04 | MMUS_ITS ---
EXAMINATION: MM diagnostic josé miguel LT w lucie, US breast LT complete HISTORY: Follow-up left breast asymmetry TECHNIQUE: Additional 3-D tomosynthesis images of the left breast were performed and synthetic 2-D im ages were generated. CAD analysis was submitted and interpreted. High resolution complete left breast ultrasound was performed. COMPARISON: Comparison to multiple prior studies sequentially, with oldest reviewed study dated 12/2016. BREAST PARENCHYMAL COMPOSITION: Not dense: There are scattered areas of fibroglandular density. FINDINGS: MAMMOGRAPHIC FINDINGS: There is a persistent 4 mm mass in the upper central left breast, anterior-mid depth. There are no rai spicious calcifications or architectural distortion. ULTRASOUND: Complete US of all 4 quadrants of the left breast and retroareolar region was reviewed. At 11:00, 1 c m from the nipple there is a 4 mm cyst corresponding to the mammographic finding. No suspicious meaghan s to suggest malignancy. IMPRESSION: 1. No evidence for malignancy in the left breast. 2. Routine yearly screening mammogram and regular clinical breast examination are recommended. BI-RADS Category 2: Benign finding(s). Reviewed, dictated and finalized at location B. IMPRESSION: 1. No evidence for malignancy in the left breast. 2. Routine yearly screening mammogram and regular clinical breast examination a re recommended. BI-RADS Category 2: Benign finding(s).
== END 2024-04-04 11:08 | disposition home or self-care (01) ==
PROVIDERS: PCP Emergency Medicine; Visit Provider Emergency Medicine
DX: N63.20 Unspecified lump in the left breast, unspecified quadrant (principal); R92.8 Other abnormal and inconclusive findings on diagnostic imaging of breast
CPT/HCPCS: 76641; 77061; 77065; G0279

== ENCOUNTER 2024-06-16 10:42 | Outpatient (CLI) | payer OTHER, SELFPAY ==
[2024-06-16 11:46] LABS: Alanine Aminotransferase 11 U/L (6-35); Albumin Level 4.2 g/dL (3.5-5.1); Alkaline Phosphatase 78 U/L (38-126); Anion Gap 9 mmol/L (4-12); Aspartate Amino Transferase 19 U/L (14-36); Bilirubin,Total 0.5 mg/dL (0.2-1.3); Blood Urea Nitrogen 10 mg/dL (7-17); Calcium 8.7 mg/dL (8.4-10.2); Carbon Dioxide 26 mmol/L (22-30); Chloride 103 mmol/L (98-107); Cholesterol 172 mg/dL (0-200); Estimated Glomerular Filt Rate > 60; Glucose 92 mg/dL (65-110); HDL Direct 81 mg/dL; Potassium 4.3 mmol/L (3.4-5.0); Sodium 138 mmol/L (137-145); Triglycerides 75 mg/dL (<150)
[2024-06-16 11:56] LABS: LDL Cholesterol Direct 71 mg/dL
[2024-06-16 11:57] LABS: Vitamin D 25 Hydroxy 28.5 ng/mL
== END 2024-06-16 10:43 | disposition home or self-care (01) ==
PROVIDERS: PCP Emergency Medicine; Visit Provider Emergency Medicine
DX: E78.5 Hyperlipidemia, unspecified (principal); I10 Essential (primary) hypertension; E55.9 Vitamin D deficiency, unspecified
CPT/HCPCS: 36415; 80053; 80061; 82306

== ENCOUNTER 2024-10-02 14:09 | Outpatient (CLI) | payer OTHER, SELFPAY ==
--- NOTE | ~2024-10-02 | XR_ITS ---
Clinical Indication: Cough PA and lateral views of the chest: Comparison: 09/17/2021 Findings: Stable calcified right basilar granuloma. The lungs are otherwise clear, without evidence o f focal consolidation or pleural effusion. Cardiomediastinal silhouette is within normal limits. Bon es and soft tissues are unremarkable. Impression: No significant abnormality. Reviewed, dictated and finalized at location . LE AIR VALVE TESTER Impression: No significant abnormality.
[2024-10-02 14:27] LABS: Basophils Percent Auto 0.2 % (0.2-1.2); Hematocrit 40.9 % (37.0-47.0); Hemoglobin 12.7 g/dL (12.0-15.0); Immature Granulocyte Absolute 0.07 K/mm3 (0.00-0.031); Immature Granulocyte Percent A 0.4 % (0-0.5); Lymphocytes Absolute Auto 1.32 K/mm3 (0.9-3.2); Lymphocytes Percent Auto 8.2 % (18.3-44.2); Mean Corpuscular HGB Conc 31.1 g/dl (32-36); Mean Corpuscular Hemoglobin 24.7 pg (26-34); Mean Corpuscular Volume 79.4 fl (80-100); Mean Platelet Volume 10.3 fl (7.4-10.4); Monocytes Absolute Auto 0.6 K/mm3 (0.1-0.6); Monocytes Percent Auto 3.7 % (2.6-8.5); Neutrophils Percent Auto 87.5 % (45.5-73.1); Platelet Count Result 223 k/mm3 (150-375); Red Blood Count 5.15 M/mm3 (4.2-5.4); Red Cell Distribution Width 16.3 % (11.5-14.5)
== END 2024-10-02 14:10 | disposition home or self-care (01) ==
PROVIDERS: PCP Emergency Medicine; Visit Provider Emergency Medicine
DX: R05.9 Cough, unspecified (principal); R06.02 Shortness of breath
CPT/HCPCS: 36415; 71046; 85025

== ENCOUNTER 2024-10-04 08:23 | Outpatient (CLI) | payer OTHER, SELFPAY ==
[2024-10-04 09:13] LABS: Alanine Aminotransferase 13 U/L (6-35); Albumin Level 4.1 g/dL (3.5-5.1); Alkaline Phosphatase 76 U/L (38-126); Anion Gap 8 mmol/L (4-12); Aspartate Amino Transferase 22 U/L (14-36); Bilirubin,Total 0.6 mg/dL (0.2-1.3); Blood Urea Nitrogen 13 mg/dL (7-17); Carbon Dioxide 26 mmol/L (22-30); Chloride 102 mmol/L (98-107); Estimated Glomerular Filt Rate > 60; Glucose 113 mg/dL (65-110); Potassium 3.8 mmol/L (3.4-5.0); Sodium 136 mmol/L (137-145)
[2024-10-04 09:49] LABS: Iron 29 ug/dL (37-170)
[2024-10-04 09:58] LABS: Percent Iron Saturation 9 % (20-50)
[2024-10-04 23:02] LABS: Vitamin D 25 Hydroxy 33.2 ng/mL
== END 2024-10-04 08:24 | disposition home or self-care (01) ==
PROVIDERS: PCP Emergency Medicine; Visit Provider Emergency Medicine
DX: E78.5 Hyperlipidemia, unspecified (principal); E55.9 Vitamin D deficiency, unspecified; R53.83 Other fatigue; D64.9 Anemia, unspecified
CPT/HCPCS: 36415; 80053; 82306; 83540; 83550

== ENCOUNTER 2024-11-03 11:40 | Outpatient (CLI) | payer OTHER, SELFPAY ==
[2024-11-03 14:07] LABS: Iron 52 ug/dL (37-170)
[2024-11-03 14:18] LABS: Percent Iron Saturation 16 % (20-50); TOTAL IRON BINDING CAPACITY 331 ug/dL (261-462)
== END 2024-11-03 11:41 | disposition home or self-care (01) ==
PROVIDERS: PCP Emergency Medicine; Visit Provider Emergency Medicine
DX: D64.9 Anemia, unspecified (principal)
CPT/HCPCS: 36415; 83540; 83550

== ENCOUNTER 2025-03-23 09:44 | Outpatient (CLI) | payer OTHER, SELFPAY ==
[2025-03-23 10:35] LABS: Alanine Aminotransferase 19 U/L (6-35); Albumin Level 4.3 g/dL (3.5-5.1); Alkaline Phosphatase 76 U/L (38-126); Anion Gap 8 mmol/L (4-12); Aspartate Amino Transferase 25 U/L (14-36); Bilirubin,Total 0.6 mg/dL (0.2-1.3); Blood Urea Nitrogen 11 mg/dL (7-17); Calcium 8.9 mg/dL (8.4-10.2); Carbon Dioxide 24 mmol/L (22-30); Chloride 106 mmol/L (98-107); Estimated Glomerular Filt Rate > 60; Glucose 105 mg/dL (65-110); Potassium 4.5 mmol/L (3.4-5.0); Sodium 138 mmol/L (137-145)
[2025-03-23 10:57] LABS: Vitamin D 25 Hydroxy 31.9 ng/mL
[2025-03-23 11:12] LABS: Iron 108 ug/dL (37-170)
[2025-03-23 11:22] LABS: Percent Iron Saturation 40 % (20-50)
== END 2025-03-23 09:45 | disposition home or self-care (01) ==
PROVIDERS: PCP Emergency Medicine; Visit Provider Emergency Medicine
DX: E78.5 Hyperlipidemia, unspecified (principal); E55.9 Vitamin D deficiency, unspecified; R79.89 Other specified abnormal findings of blood chemistry
CPT/HCPCS: 36415; 80053; 82306; 83540; 83550

== ENCOUNTER 2025-07-26 06:57 | Outpatient (CLI) | payer OTHER, SELFPAY ==
[2025-07-26 07:34] LABS: Hematocrit 44.6 % (37.0-47.0); Hemoglobin 14.5 g/dL (12.0-15.0); Immature Granulocyte Percent A 0.3 % (0-0.5); Lymphocytes Absolute Auto 2.11 K/mm3 (0.9-3.2); Mean Corpuscular HGB Conc 32.5 g/dl (32-36); Mean Corpuscular Hemoglobin 29.2 pg (26-34); Mean Corpuscular Volume 89.7 fl (80-100); Nucleated Red Blood Cells Absolute Auto 0.000 K/mm3 (0.0-0.012); Nucleated Red Blood Cells Perc 0.0 % (0.0-0.2); Platelet Count Result 249 k/mm3 (150-375); Red Blood Count 4.97 M/mm3 (4.2-5.4); White Blood Count 7.5 K/mm3 (4.5-10.0)
[2025-07-26 07:55] LABS: Alanine Aminotransferase 17 U/L (6-35); Albumin Level 4.1 g/dL (3.5-5.1); Alkaline Phosphatase 81 U/L (38-126); Anion Gap 8 mmol/L (4-12); Aspartate Amino Transferase 23 U/L (14-36); Bilirubin,Total 0.6 mg/dL (0.2-1.3); Blood Urea Nitrogen 12 mg/dL (7-17); Calcium 8.6 mg/dL (8.4-10.2); Carbon Dioxide 26 mmol/L (22-30); Chloride 104 mmol/L (98-107); Estimated Glomerular Filt Rate > 60; Glucose 108 mg/dL (65-110); Potassium 4.2 mmol/L (3.4-5.0); Sodium 138 mmol/L (137-145); Total Protein 7.1 g/dL (6.3-8.2)
== END 2025-07-26 06:58 | disposition home or self-care (01) ==
LOC: ANHLAB 06:58
PROVIDERS: PCP Emergency Medicine; Visit Provider Emergency Medicine
DX: E55.9 Vitamin D deficiency, unspecified (principal); I10 Essential (primary) hypertension; E78.5 Hyperlipidemia, unspecified
CPT/HCPCS: 36415; 80053; 82306; 85025

== ENCOUNTER 2025-08-17 08:58 | Outpatient (CLI) | payer OTHER, SELFPAY ==
--- NOTE | ~2025-08-17 | DEXA_ITS ---
Bone Density Report Name: SIMON CHIANG Age: 84 Sex: Female Ethnicity: White Date of : 1940 Indication: postmenopausal; screening for osteoporosis; parental hip fracture; height loss; hysterectomy; Referring Provider: ANTONIA RUSHING Study: Bone densitometry was performed. Exam Date: August 17, 2025 Accession number: [id number] Bone Density: Region BMD T-score Z-score Classification AP Spine(L1-L4) 0.949 -0.9 1.9 Normal Femoral Neck (Left) 0.871 0.2 2.7 Normal Total Hip (Left) 0.882 -0.5 1.8 Normal Femoral Neck (Right) 0.592 -2.3 0.2 Osteopenia Total Hip (Right) 0.846 -0.8 1.5 Normal Total Hip Mean 0.864 -0.7 1.7 Normal World Health Organization criteria for BMD impression classify patients as: Normal (T-score at or above -1.0), Osteopenia (T-score between -1.0 and -2.5), or Osteoporosis (T-score at or below -2.5). 10-year Fracture Risk(1): Major Osteoporotic Fracture 30% Hip Fracture 21% Reported Risk Factors: [place] (), Neck BMD=0.592, BMI=33.0, parental fracture (1) FRAX(R) Version 3.08. Fracture probability calculated for an untreated patient. Fracture probability may be lower if the patient has received treatment. Previous Exams: Region Exam Age BMD T-score BMD Change BMD Change Date g/cm2 vs Baseline vs Previous AP Spine (L1-L4) 08/17/2025 84 0.949 -0.9 0.045 (5.0%)* -0.041 (-4.2%) 10/16/2022 82 0.990 -0.5 0.086 (9.5%)* 0.085 (9.4%)* 10/11/2020 80 0.905 -1.3 0.001 (0.1%) -0.006 (-0.7%) 09/02/2017 76 0.912 -1.2 0.007 (0.8%) 0.007 (0.8%) 06/11/2015 74 0.904 -1.3 Total Hip(Left) 08/17/2025 84 0.882 -0.5 0.076 (9.5%)* 0.032 (3.7%)* 10/16/2022 82 0.850 -0.8 0.045 (5.6%)* 0.060 (7.6%)* 10/11/2020 80 0.790 -1.2 -0.016 (-1.9%) -0.058 (-6.8%) 09/02/2017 76 0.848 -0.8 0.042 (5.2%)* 0.042 (5.2%)* 06/11/2015 74 0.805 -1.1 Total Hip(Right) 08/17/2025 84 0.846 -0.8 0.053 (6.7%)* 0.006 (0.7%) 10/16/2022 82 0.840 -0.8 0.047 (5.9%)* 0.055 (7.0%)* 10/11/2020 80 0.785 -1.3 -0.008 (-1.0%) -0.039 (-4.8%) 09/02/2017 76 0.825 -1.0 0.031 (4.0%)* 0.031 (4.0%)* 06/11/2015 74 0.793 -1.2 *Denotes significance at 95% confidence level, LSC for AP Spine = 0.022 g/cm2, LSC for Total Hip = 0.027 g/cm2 Clinical Information Provided by Patient: Parent has had a hip fracture Has used the following medications: Vitamin D, Calcium Has the following medical conditions: Hysterectomy Patient maximum height was 62 Menopause Age: 51 No regular weight bearing exercise Drinks caffeinated beverages Onset of menses at age 13 Number of children 4 Missed period for more than 6 months in a row Impression: The patient has low bone mass, based on the Right Femoral Neck T-score. The patient has an estimated ten-year risk of hip fracture of 21% and an estimated ten-year risk of major fracture of 30%, based on the WHO FRAX algorithm. The patient has risk factors, including: parental hip fracture. The BMD for the AP Spine (L1-L4) decreased, changing by -4.2% since the last DXA exam. Discussion: BONE DENSITY IS LOW AT ONE OR MORE SKELETAL SITES. THE PATIENT'S BMD AND CLINICAL RISK FACTORS CONTRIBUTE TO THIS PATIENT'S HIGH RISK OF FRACTURE. This patient's lowest T-score is low at one or more skeletal sites. It meets the World Health Organization's (WHO) criteria for ?low bone mass? (T-score between -1.0 and -2.5). The patient's 10-year risk of hip fracture and 10 year risk of a major osteoporotic fracture as calculated by FRAX exceeds the threshold where pharmacological therapy is recommended by the National Osteoporosis Foundation (NOF). However, all treatment decisions require clinical judgment and consideration of individual patient factors, including patient preferences, comorbidities, previous drug use, risk factors not captured in the FRAX model (e.g., frailty, falls, vitamin D deficiency, increased bone turnover, interval significant decline in bone density) and possible under or overestimation of fracture risk by FRAX. The patient should follow a healthful lifestyle (good nutrition with adequate calcium and vitamin D, and appropriate weight-bearing exercise). Follow-Up: Consider a repeat BMD and Vertebral Fracture Assessment (VFA) exam in 2 years or sooner if medically necessary, to reassess this patient's status. Reported by: DENNISE on 08/17/2025 9:55:00 AM. Reviewed, dictated and finalized at location A.
--- NOTE | ~2025-08-17 | MM_ITS ---
EXAMINATION: MM screening josé miguel BI w lucie HISTORY: Screening TECHNIQUE: Craniocaudal and mediolateral oblique 3-D tomosynthesis images were obtained and synthetic 2-D images were generated. CAD analysis was submitted and interpreted. COMPARISON: 10/16/2022 BREAST PARENCHYMAL COMPOSITION: There are scattered areas of fibroglandular density. FINDINGS: There is no evidence of suspicious mass, calcification, or architectural distortion to suggest malignancy. There has been no suspicious interval change. IMPRESSION: 1. No mammographic evidence of malignancy. Recommend routine screening mammography in one year. BI-RADS Category 2: Benign finding(s) Reviewed, dictated and finalized at location Q. IMPRESSION: 1. No mammographic evidence of malignancy. Recommend routine screening mammogra phy in one year. BI-RADS Category 2: Benign finding(s)
== END 2025-08-17 08:59 | disposition home or self-care (01) ==
LOC: ANHFOHIMG 09:00
PROVIDERS: PCP Emergency Medicine; Visit Provider Emergency Medicine
DX: Z12.31 Encounter for screening mammogram for malignant neoplasm of breast (principal); M85.851 Other specified disorders of bone density and structure, right thigh; Z78.0 Asymptomatic menopausal state
CPT/HCPCS: 77063; 77067; 77080

== ENCOUNTER 2025-08-23 13:38 | Outpatient (CLI) | payer OTHER, SELFPAY ==
--- NOTE | ~2025-08-23 | XR_ITS ---
MODIFIED ESOPHAGRAM HISTORY: Dysphagia. TECHNIQUE: Modified barium esophagram was performed on 08/23/2025. I administered fluoroscopy and performed the exam with speech pathologist. Patient was seated for lateral fluoroscopic imaging for ingestion of thin liquids, pudding, solids and quantified amounts, followed by thin liquids in uncontrolled amounts. This was recorded on tape. A single fluoroscopic spot image was also recorded. The DAP for this procedure was 2.199 Gycm2. The amount of fluoroscopy time used during this procedure was 3.1 minutes. FINDINGS: Oral stage: Adequate function. Pharyngeal stage: Reduced laryngeal elevation and tongue base retraction. There is vallecular residue. Laryngeal penetration without aspiration. Cervical/esophageal stage: Adequate function. IMPRESSION: Pharyngeal dysphagia with laryngeal penetration without aspiration. Please correlate with speech pathologist findings and specific feeding recommendations. Reviewed, dictated and finalized at location A. IMPRESSION: Pharyngeal dysphagia with laryngeal penetration without aspiration. Please correlate with speech pathologist findings and specific feeding recomm endations.
--- NOTE | 2025-08-23 15:19 | REHSTMBS ---
Assessment and note entered by Amanda Alicea [employer] Modified Barium Swallow Evaluation Feeding Type Recommended Oral Food Consistency Regular, Level 7 Liquid Consistency Thin (0) ST Clinical Summary The patient is a 84 year old female referred for a MBS Study. The patient reports a long history of reflux. She states she notices it most when lying down for the evening. She states she will since the material coming up her airway and it causes her to have excessive coughing episodes. She states her concern today is of a sticking sensation she feels mostly when swallowing solids . The patient was positioned in a lateral view and presented the following consistencies: 5cc/tsp thin liquid barium, cup trials thin liquid barium, 5cc mildly thick liquid barium, cup trials mildly thick liquid barium, pudding mixed with barium paste, and cracker coated with barium paste. Oral Stage: Oral preparation and transit was viewed to be timely for all consistencies. Pharyngeal Stage : When presented 5cc tsp amounts thin liquid, 5cc/ tsp amounts mildly thick liquid barium ,and solid/ cracker consistency swallow initiation was viewed to be timely without viewed aspiration or penetration. The patient was viewed to have trace/ flash penetration with cup drinks thin, cup drinks mildly thick, and pudding consistency. Penetration was secondary to reduced laryngeal elevation. Attempts to utilize a chin tuck posture to reduced laryngeal penetration were not consistently beneficial. Attempts to reduce laryngeal penetration by controlling bolus size were beneficial but patient followed inconsistently. When instructed to control the food bolus and swallow it together with a forced swallow patient had improved timing of the swallow and reduced laryngeal penetration viewed. Trace residual was viewed again intermittently within the valleculae due to reduced epiglottic inversion . Recommend: 1. Regular Diet / Level 7 2. thin Liquid / Level 0 3. Small bites and drinks (to control the bolus) 4. upright with meals 5. No Straw 6. Forced swallow Results and recommendations were reviewed with the patient following the MBS. The [employer] demonstrated and provided instruction with patient in trials of small controlled drinks with a forced controlled swallow. Patient may benefit from a GI consult to address reflux concerns and changes over the past few months. Thank you for the consult.
== END 2025-08-23 13:39 | disposition home or self-care (01) ==
PROVIDERS: PCP Emergency Medicine; Visit Provider Emergency Medicine
DX: R13.10 Dysphagia, unspecified (principal)
CPT/HCPCS: 74230; 92611

== ENCOUNTER 2025-10-10 00:50 | Day surgery (SDC) | payer OTHER, SELFPAY ==
[2025-10-01 08:47] VITALS: BMI 32.3
[2025-10-10 06:22] VITALS: BP 149/64; PULSE 78; RESP 20; TEMP 36.2; O2SAT 98; BMI 33.3
[2025-10-10] MEDS: LACTATED RINGERS 1,000 ML 150 ML IV CONT (06:33)
--- NOTE | 2025-10-10 06:43 | WPDANESEPPF ---
Anes - Initial Pre Proc Eval Procedure: Operation Date: 10/10/25 07:30 Proposed Procedures p Esophagogastroduodenoscopy EGD - Damien Berry MD Date/Time: 10/10/25 06:43 Surgeon: Damien Berry MD Pre Op Diagnosis: GERD, Dysphagia, unspecified Patient Data Age: 85 Gender: F Height: 1.5 m Weight: 75 kg Last Vital Signs Temp 36.2 C L 10/10/25 06:22 Pulse 78 10/10/25 06:22 Resp 20 10/10/25 06:22 BP 149/64 H 10/10/25 06:22 Pulse Ox 98 10/10/25 06:22 O2 Del Method Room Air 10/10/25 06:22 Allergies Allergy/AdvReac Type Severity Reaction Status Date / Time ofloxacin Allergy Severe HALLUCINATI Verified 10/10/25 06:20 ONS Quinolones Allergy Mild Gastrointestinal Verified 10/10/25 06:20 Upset clarithromycin Allergy Unknown Gastrointestinal Verified 10/10/25 06:20 Upset Sulfa (Sulfonamide Allergy Unknown Blister Verified 10/10/25 06:20 Antibiotics) Home Medications ?Medication ?Instructions ?Recorded ?Confirmed ?Type cholecalciferol (vitamin D3) 50 2,000 unit PO DAILY 10/03/19 10/10/25 History mcg (2,000 unit) tablet potassium 99 mg tablet See Rx Instructions .Route .COMPLEX 10/03/19 10/10/25 History calcium 500 mg tablet 1,000 mg PO DAILY 01/13/23 10/10/25 History loperamide 2 mg capsule 2 mg PO Q4H PRN Diarrhea 01/13/23 10/10/25 History magnesium 500 mg tablet 500 mg PO DAILY 01/13/23 10/10/25 History loratadine 10 mg tablet (Claritin) 10 mg PO DAILY #90 tabs 12/10/23 10/10/25 Rx syringe with needle, safety 3 mL #100 ea 10/18/24 09/14/25 Rx 25 gauge x 1 (BD Integra Syringe) oxybutynin chloride 5 mg 5 mg PO DAILY #90 tabs 02/23/25 10/10/25 Rx tablet,extended release 24 hr gabapentin 300 mg capsule See Rx Instructions .Route 04/18/25 10/10/25 Rx .COMPLEX #180 caps cyclobenzaprine 5 mg tablet 5 mg PO TID PRN Back Pain #21 tabs 07/04/25 10/10/25 Rx azelastine 137 mcg (0.1 %) nasal See Rx Instructions .Route 07/06/25 10/10/25 Rx spray .COMPLEX #30 mL cyanocobalamin (vitamin B-12) See Rx Instructions .Route 07/06/25 10/10/25 Rx 1,000 mcg/mL injection solution .COMPLEX #3 mL ferrous sulfate 325 mg (65 mg 325 mg PO TID #270 tabs 07/06/25 10/10/25 Rx iron) tablet tramadol 50 mg tablet 50 mg PO Q6H PRN pain #30 tabs 07/06/25 10/01/25 Rx fluticasone propionate 50 See Rx Instructions .Route 07/23/25 10/10/25 Rx mcg/actuation nasal .COMPLEX #48 grams spray,suspension (Flonase Allergy Relief) diclofenac sodium 1 % topical gel 4 g topical QID #100 grams 08/03/25 10/10/25 Rx (Arthritis Pain (diclofenac)) amlodipine 5 mg tablet See Rx Instructions .Route 08/14/25 10/10/25 Rx .COMPLEX #90 tabs pantoprazole 40 mg tablet,delayed See Rx Instructions .Route 08/14/25 10/10/25 Rx release .COMPLEX #90 tabs Patient hx anesthesia problems: none Family hx anesthesia problems: none Results Review: All pre-operative results and documents have been reviewed as part of the pre-operative evaluation. [facility] Past Medical History Medical History Dysphagia Syncope Rib pain on right side Urinary incontinence GERD (gastroesophageal reflux disease) Viral sinusitis Seasonal allergies Post herpetic neuralgia Plantar fasciitis of right foot Patient had no falls in past year Pain of right heel Osteopenia of neck of right femur Myalgia Leg pain, left Hip pain, right Herpes zoster without complication Gastro-esophageal reflux disease without esophagitis Fall involving stool as cause of accidental injury Chronic frontal sinusitis Acute viral syndrome Acute non-recurrent frontal sinusitis Osteoarthritis of right knee Fibromyalgia Arthritis Hypertension Dizziness Elevated temperature Cough Vitamin D deficiency disease GERD (gastroesophageal reflux disease) Surgical History Surgical History Status post total right knee replacement Family History Family History Sibling Family history of lung cancer Mother Family history of emphysema, Onset Age: 73 Father Family history of seizure disorder, Onset Age: 69 Other Arthritis Asthma Carcinoma of colon Cerebrovascular accident Diabetes mellitus Family history of cardiovascular disease Family history of chronic obstructive pulmonary disease Family history of malignant neoplasm Heart disease Hypertension Social History Social History Smoking status: Never smoker Second hand tobacco smoke exposure: No Additional smoking assessment comments: PT DENIES ALL FORMS OF TOBACCO USE Alcohol intake: never Substance use: never Substance use type: does not use Lack of Transportation: No Lack of Food: Never True Current Housing: Decline to Answer Concerned About Future Housing: Decline to Answer Difficulty Paying Gas/Electric Bills: Decline to Answer Difficulty Paying for Meds: Decline to Answer Currently Unemployed: Decline to Answer Education: Decline to Answer Difficulty w/ Childcare or Family Care: Decline to Answer Living arrangements: with family Occupation/Education: occupation Gender identity (if verbalized by the patient): Female Spiritual care concerns: No Anes - Eval Final PreProcedure Day of Procedure 10/10/25 06:43 Patient weight: overweight Heart: regular rate and rhythm Lungs: clear to auscultation Airway: Mallampati scale class II Neurological: alert and oriented Last oral intake: >/= 8 hours ASA classification: III Emergent: no Anesthetic plan: proceed Anesthesia type and monitoring: general GIVS and standard monitoring Results Review: All pre-operative results and documents have been reviewed as part of the pre-operative evaluation. Informed Consent: The patient's anesthetic plan and its attendant risks and benefits were discussed with the patient/family/POA. Questions were solicited and answers provided to the satisfaction of the patient/family/POA.
--- NOTE | 2025-10-10 07:41 | S_PTH ---
PATIENT: Carmella James LOC: [facility]#:[id number] AGE/SX: 85/F ROOM: RE10/10/[address]: Damien Berry MD : [id number] BED: DIS: 10/10/2025 SPEC #: [id number] RECD: 10/10/25 08:34 STATUS: PATY REFroy #: [id number] ALEXSANDRA: 10/10/25 07:[address]: Damien Berry DEPT: [facility] Surgical RECD BY: Patricia Jett MLT, ([facility]) ENTERED: 10/10/25 08:34 SP TYPE: Surgical OTHR DR: Abdirashid Gillis MD Tissues: A - Gastric Biopsy B - Esophageal Biopsy Procedures: Hematoxylin and Eosin Stain Gross and Microscopic Level 4
[2025-10-10 07:45] VITALS: BP 139/76; PULSE 76; RESP 23; O2SAT 96
[2025-10-10 07:55] VITALS: BP 132/60; PULSE 75; RESP 25; O2SAT 95
[2025-10-10 08:05] VITALS: BP 132/63; PULSE 73; RESP 24; O2SAT 97
--- NOTE | 2025-10-10 15:12 | WPDHPUPDATE1 ---
History and Physical Update Update Date/Time: 10/10/25 15:12 History and Physical has been reviewed, including an updated exam of the patient. There are NO changes in the patient's condition. Risks, benefits, and alternatives have been discussed and questions answered. Patient agrees to proceed with procedure.
== END 2025-10-10 08:14 | disposition home or self-care (01) ==
PROVIDERS: PCP Emergency Medicine; Referring Provider Nurse Practitioner Family; Visit Provider Internal Medicine Gastroenterology
PROC: 0DJ08ZZ Inspection of Upper Intestinal Tract, Via Natural or Artificial Opening Endoscopic (ICD-10-PCS; CPT 43239; principal; 2025-10-10 07:30)
DX: K21.9 Gastro-esophageal reflux disease without esophagitis (principal); K22.4 Dyskinesia of esophagus; K44.9 Diaphragmatic hernia without obstruction or gangrene; K31.7 Polyp of stomach and duodenum
CPT/HCPCS: 43239; 88305; J7120